=== PATIENT | male | born 1950 | race Caucasian/White ===

== ENCOUNTER 2016-11-19 06:37 | Inpatient (IN) | payer MEDICARE, OTHER ==
[2016-11-19] VITALS (41 sets, daily range): BP systolic 66–162; BP diastolic 26–98
[~2016-11-19] VITALS: Ht 180.3 cm; Wt 105.7 kg
[~2016-11-19 06:37] MED LIST: ACET-2605 GT; ACET160S3 GT; AMLO10TA4 GT; ASCO500S2 GT; BISA10SU8 RC; BLOO-668 IN; CEFT1VIA15 IV; DOCU50LI GT; GLYB5TAB7 GT; INSU100V11 SQ; LEVE100S GT; LISI10TA5 GT; MAGN400O6 GT; METF500T4 GT; MULT1TAB11 GT; NA P133E RC; NUT.237L30 GT; PANT40SU2 GT; SACC250C6 GT
[2016-11-19] MEDS ORDERED: OSELTAMIVIR PHOSPHATE 75 MG CAPSULE ONE (06:48)
[2016-11-19] MEDS ORDERED: ACETAMINOPHEN ES 500 MG TABLET ONE (06:48)
[2016-11-19] MEDS ORDERED: PIPERACILLIN /TAZOBACTAM 3.375 G VIAL IV ONE (06:48)
[2016-11-19] MEDS ORDERED: IV NS 0.9% 2,000 ML ONE (06:49)
[2016-11-19] MEDS ORDERED: IV SET PRIMARY 1 EA INFUS.SET MC ONE (06:49)
[2016-11-19] MEDS ORDERED: IV D5W 50 ML IV ONE (06:49)
[2016-11-19] MEDS ORDERED: OSELTAMIVIR PHOSPHATE 75 MG CAPSULE GT ONE (07:00)
[2016-11-19] MEDS ORDERED: IV SET PRIMARY PUMP SET 1 EA INFUS.SET MC ONE ×4 (07:00→12:40)
[2016-11-19] MEDS ORDERED: IV NS 0.9% 1,000 ML BAG IV ONE ×3 (07:00→13:00)
[2016-11-19] MEDS ORDERED: ACETAMINOPHEN ES 500 MG TABLET GT ONE (07:00)
[2016-11-19] MEDS ORDERED: VANCOMYCIN 1 GM in IV D5W 250 ML IV ONE (07:00)
[2016-11-19] MEDS ORDERED: IV D5W 0 ML IV ONE (07:00)
[2016-11-19] MEDS ORDERED: VANCOMYCIN 1 GM VIAL ONE (07:00)
[2016-11-19] MEDS ORDERED: PIPERACILLIN /TAZOBACTAM 3.375 G in IV D5W 50 ML IV ONE (07:00)
[2016-11-19 07:22] LABS: KETONES,URINE NEGATIVE (NEGATIVE); LEUKOCYTE ESTERASE ,URINE 3+ (NEGATIVE)
[2016-11-19 07:25] LABS: ADD UA MICROSCOPIC YES
[2016-11-19 07:26] LABS: DIFF TOTAL % 100 %; HEMATOCRIT 29 % (39-51); HEMOGLOBIN 9.1 g/dL (13.5-17.5); LYMPHOCYTES # (AUTO) 1.1 /CMM (0.8-4.8); MEAN CORPUSCULAR HEMOGLOBIN 26 PG (26.0-33.0); MEAN CORPUSCULAR HGB CONC 32 g/dl (31.0-36.0); MEAN CORPUSCULAR VOLUME 82 fL (80-96); MONOCYTES # (AUTO) 0.6 /CMM (0.1-1.30); MONOCYTES % (AUTO) 2.8 % (2.0-12.0); NEUTROPHILS # (AUTO) 20.9 /CMM (1.8-8.9); NEUTROPHILS % (AUTO) 92.2 % (43.0-81.0); PLATELET COUNT (AUTO) 243 /CMM (150-450); WHITE BLOOD COUNT (AUTO) 22.7 K/uL (4.3-11.0)
[2016-11-19 07:31] LABS: ADD URINE CULTURE YES; WBC,URINE TOO NUMEROUS TO COUN /HPF (0-3)
[2016-11-19 07:34] LABS: ANION GAP 19 (5-14); CALCIUM, SERUM 8.3 mg/dL (8.5-10.1); CARBON DIOXIDE 18 mmol/L (21-32); CHLORIDE 109 mmol/L (98-107); CREATININE 2.9 mg/dL (0.6-1.3); GFR 22 mL/min (>60); GLUCOSE 305 mg/dL (74-106); POTASSIUM 3.9 mmol/L (3.5-5.1); SODIUM SERUM 142 mmol/L (136-145); UREA NITROGEN, BLOOD 79 mg/dL (7-18)
[2016-11-19 07:35] LABS: INR 1.17 (0.87-1.13); PROTHROMBIN TIME 12.7 SECS (9.5-12.7)
[2016-11-19 07:39] LABS: LACTIC ACID 2.1 mmol/L (0.4-2.0)
[2016-11-19 07:45] LABS: ALANINE AMINOTRANSFERASE 238 U/L (12-78); ALBUMIN 2.2 g/dL (3.4-5.0); ASPARTATE AMINOTRANSFERASE 253 U/L (15-37); BILIRUBIN,DIRECT 0.1 mg/dL (0.0-0.2); BILIRUBIN,TOTAL 0.2 mg/dL (0.2-1.0); INDIRECT BILIRUBIN 0.1 mg/dL (0.0-1.1); TOTAL PROTEIN, SERUM 7.8 g/dL (6.4-8.2)
[2016-11-19] MEDS ORDERED: ALBU1.257 IH (07:48)
[2016-11-19] MEDS ORDERED: ACID1TAB12 GT (07:48)
[2016-11-19] MEDS ORDERED: IPRA0.2S9 IH (07:48)
[2016-11-19] MEDS ORDERED: CEFT1VIA15 IV (07:48)
[2016-11-19] MEDS ORDERED: NORM10004 IV (07:48)
[2016-11-19] MEDS ORDERED: ACET-2605 GT (07:48)
[2016-11-19 07:57] LABS: ABG BASE EXCESS -8.5 mmol/L; ABG HCO3 14.9 mmol/L; ABG PH 7.412 (7.350-7.450); ABG PO2 288.7 mmHg (75.0-100.0); ABG TOTAL HEMOGLOBIN 8.4 G/dL (13.5-18.0); ALLEN TEST Pass; AaDO2 400.3 mmHg; O2Hb 97.9 % (94.0-97.0)
[2016-11-19 08:11] LABS: *LACTIC ACID REFLEX FLAG YES
[2016-11-19] MEDS ORDERED: MISCELLANEOUS MED 1 EA EA GT PRN (10:00)
[2016-11-19] MEDS ORDERED: BISACODYL SUPP (10 MG) 10 MG/SUPP.RECT SUPP.RECT RC PRN (10:00)
[2016-11-19] MEDS ORDERED: MEROPENEM 1 G in IV NS 0.9% 100 ML IV SCH (10:00)
[2016-11-19] MEDS ORDERED: ENOXAPARIN SODIUM 40 MG/0.4 ML DISP.SYRIN SQ SCH (10:00)
[2016-11-19] MEDS ORDERED: DEXTROSE 50%-WATER 50 ML DISP.SYRIN IV PRN (10:00)
[2016-11-19] MEDS ORDERED: IV NS 0.9% 1,000 ML BAG IV SCH (10:00)
[2016-11-19] MEDS ORDERED: MORPHINE SULFATE INJ 2 MG/ML DISP.SYRIN IV PRN (10:00)
[2016-11-19] MEDS ORDERED: ONDANSETRON HCL/PF 4 MG/2 ML VIAL IVP PRN (10:00)
[2016-11-19] MEDS ORDERED: NA PHOS,M-B/NA PHOS,DI-BA 1 EA ENEMA RC PRN (10:00)
[2016-11-19] MEDS ORDERED: MAGNESIUM HYDROXIDE 30 ML UDC GT PRN (10:00)
[2016-11-19] MEDS ORDERED: SECONDARY IV SET 1 EA INFUS.SET MC ONE (10:57)
[2016-11-19] MEDS ORDERED: ENOXAPARIN SODIUM 30 MG/0.3 ML DISP.SYRIN SQ SCH (11:00)
[2016-11-19] MEDS: IV NS 0.9% 1,000 ML IV PRN (11:27)
[2016-11-19] MEDS: ALBUTEROL FS 2.5 MG/0.5 ML VIAL.NEB NEB SCH ×2 (11:30→19:30)
[2016-11-19] MEDS ORDERED: FEE PK DOSING 1 MIN EA MC ONE (11:52)
[2016-11-19] MEDS ORDERED: BLOOD SUGAR DIAGNOSTIC 1 EACH STRIP IN SCH (12:00)
[2016-11-19] MEDS: Z GUARD REMEDY 2 OZ OINT TP PRN (12:02)
[2016-11-19] MEDS: ACETAMINOPHEN 650 MG/20.3 ML UDC GT PRN ×3 (12:02→21:48)
[2016-11-19] MEDS: ENOXAPARIN SODIUM 30 MG/0.3 ML DISP.SYRIN SQ SCH (12:03)
[2016-11-19] MEDS: BLOOD SUGAR DIAGNOSTIC 1 EACH STRIP IN SCH ×3 (12:03→23:51)
[2016-11-19] MEDS ORDERED: NOREPINEPHRINE 8 MG in IV D5W 500 ML IV PRN (12:30)
[2016-11-19] MEDS: INSULIN REGULAR, HUMAN 100 UNIT/ML 3 ML VIAL SQ PRN ×2 (12:51→17:18)
[2016-11-19] MEDS: NOREPINEPHRINE 8 MG in IV D5W 500 ML IV PRN ×2 (13:15→20:38)
[2016-11-19] MEDS ORDERED: ALBUTEROL HALF STRENGTH 1.25 MG/3 ML VIAL.NEB IH SCH (13:30)
[2016-11-19] MEDS: MEROPENEM 1 G in IV NS 0.9% 100 ML IV SCH ×2 (13:31→21:16)
[2016-11-19] MEDS: DOCUSATE SODIUM LIQ 100 MG/10 ML UDC GT SCH (16:29)
[2016-11-19] MEDS: glyBURIDE 5 MG TABLET GT SCH (16:31)
[2016-11-19] MEDS: ACIDOPHILUS/BULGARICUS 1 EACH TAB.CHEW GT SCH (16:31)
[2016-11-19] MEDS: GLYTROL 1,000 ML BAG GT PRN (16:32)
[2016-11-19] MEDS: IPRATROPIUM NEB FS 0.5 MG/2.5 ML AMPUL.NEB IH SCH (19:30)
[2016-11-19] MEDS ORDERED: METRONIDAZOLE 500 MG TABLET PO SCH (21:00)
[2016-11-19] MEDS: LEVETIRACETAM SOL (5 ML) 100 MG/ML UDC GT SCH (21:16)
[2016-11-19] MEDS: METRONIDAZOLE 500 MG TABLET GT SCH (21:48)
[2016-11-20] VITALS (82 sets, daily range): BP systolic 59–139; BP diastolic 37–96
[2016-11-20] MEDS: IV NS 0.9% 1,000 ML IV PRN (00:27)
[2016-11-20] MEDS: NOREPINEPHRINE 16 MG in IV D5W 500 ML IV PRN ×2 (02:51→20:22)
[2016-11-20 04:52] LABS: DIFF TOTAL % 100 %; EOSINOPHILS % (AUTO) 0.1 % (0.0-6.0); HEMATOCRIT 29 % (39-51); LYMPHOCYTES # (AUTO) 0.8 /CMM (0.8-4.8); LYMPHOCYTES % (AUTO) 4.6 % (20.0-44.0); MEAN CORPUSCULAR HEMOGLOBIN 26 PG (26.0-33.0); MEAN CORPUSCULAR HGB CONC 32 g/dl (31.0-36.0); MEAN CORPUSCULAR VOLUME 83 fL (80-96); MONOCYTES # (AUTO) 0.6 /CMM (0.1-1.30); MONOCYTES % (AUTO) 3.6 % (2.0-12.0); NEUTROPHILS # (AUTO) 16.3 /CMM (1.8-8.9); NEUTROPHILS % (AUTO) 91.7 % (43.0-81.0); PLATELET COUNT (AUTO) 186 /CMM (150-450); RED BLOOD CELL COUNT(AUTO) 3.44 MIL/uL (4.5-6.0); WHITE BLOOD COUNT (AUTO) 17.7 K/uL (4.3-11.0)
[2016-11-20 05:15] LABS: ALBUMIN 1.9 g/dL (3.4-5.0); ANION GAP 16 (5-14); ASPARTATE AMINOTRANSFERASE 1057 U/L (15-37); BILIRUBIN,TOTAL 0.2 mg/dL (0.2-1.0); CALCIUM, SERUM 7.5 mg/dL (8.5-10.1); CARBON DIOXIDE 19 mmol/L (21-32); CHLORIDE 113 mmol/L (98-107); CHOLESTEROL 83 mg/dL (<200); CREATININE 2.1 mg/dL (0.6-1.3); GFR 32 mL/min (>60); GLUCOSE 223 mg/dL (74-106); LDL 29 mg/dL (0-99); PHOSPHORUS 2.8 mg/dL (2.5-4.9); POTASSIUM 3.4 mmol/L (3.5-5.1); SODIUM SERUM 145 mmol/L (136-145); TRIGLYCERIDES 166 mg/dL (30-150); UREA NITROGEN, BLOOD 55 mg/dL (7-18)
[2016-11-20 05:16] LABS: HDL CHOLESTEROL < 10 mg/dL (40-60)
[2016-11-20] MEDS: ACETAMINOPHEN 650 MG/20.3 ML UDC GT PRN (05:24)
[2016-11-20] MEDS: PANTOPRAZOLE 40 MG/PACK PACK GT SCH (05:24)
[2016-11-20] MEDS: METRONIDAZOLE 500 MG TABLET GT SCH ×3 (05:24→20:54)
[2016-11-20 05:29] LABS: ALANINE AMINOTRANSFERASE 1266 U/L (12-78)
[2016-11-20 05:46] LABS: LYMPHOCYTES % (MANUAL) 5 % (16-48); PLATELET ESTIMATE ADEQUATE
[2016-11-20 05:48] LABS: HYPOCHROMASIA SLT
[2016-11-20] MEDS: BLOOD SUGAR DIAGNOSTIC 1 EACH STRIP IN SCH ×3 (06:34→17:26)
[2016-11-20] MEDS: INSULIN REGULAR, HUMAN 100 UNIT/ML 3 ML VIAL SQ PRN ×3 (06:43→17:30)
[2016-11-20] MEDS: ALBUTEROL FS 2.5 MG/0.5 ML VIAL.NEB NEB SCH ×4 (08:17→19:26)
[2016-11-20] MEDS: IPRATROPIUM NEB FS 0.5 MG/2.5 ML AMPUL.NEB IH SCH ×4 (08:17→19:26)
[2016-11-20] MEDS: ACIDOPHILUS/BULGARICUS 1 EACH TAB.CHEW GT SCH ×2 (08:21→16:46)
[2016-11-20] MEDS: glyBURIDE 5 MG TABLET GT SCH ×2 (08:21→16:46)
[2016-11-20] MEDS: DOCUSATE SODIUM LIQ 100 MG/10 ML UDC GT SCH ×2 (08:22→16:46)
[2016-11-20] MEDS: LEVETIRACETAM SOL (5 ML) 100 MG/ML UDC GT SCH ×2 (08:22→20:55)
[2016-11-20] MEDS: MEROPENEM 1 G in IV NS 0.9% 100 ML IV SCH ×2 (08:22→20:55)
[2016-11-20] MEDS: ENOXAPARIN SODIUM 30 MG/0.3 ML DISP.SYRIN SQ SCH (08:23)
[2016-11-20] MEDS ORDERED: AMLODIPINE BESYLATE 10 MG TABLET GT SCH (09:00)
[2016-11-20] MEDS ORDERED: LISINOPRIL (10MG) 10 MG TABLET GT SCH (09:00)
[2016-11-20] MEDS ORDERED: ASCORBIC ACID SYRUP 500 MG/5 ML UDC GT SCH (09:00)
[2016-11-20] MEDS: ASCORBIC ACID 500 MG TABLET GT SCH (09:39)
[2016-11-20 09:44] LABS: TROPONIN I 0.115 ng/mL (0.00-0.056)
[2016-11-20] MEDS: Potassium Chloride 20 MEQ in IV NS 0.9% 1,000 ML IV PRN (10:07)
[2016-11-20] MEDS ORDERED: IV SET PRIMARY PUMP SET 1 EA INFUS.SET MC ONE (15:59)
[2016-11-20] MEDS ORDERED: SECONDARY IV SET 1 EA INFUS.SET MC ONE (16:00)
[2016-11-20] MEDS ORDERED: VANCOMYCIN 1.25 GM in IV D5W 500 ML IV SCH (16:00)
[2016-11-20] MEDS ORDERED: IV NS 0.9% 250 ML IV ONE (16:00)
[2016-11-21] VITALS (72 sets, daily range): BP systolic 84–138; BP diastolic 42–105
[2016-11-21] MEDS: BLOOD SUGAR DIAGNOSTIC 1 EACH STRIP IN SCH ×4 (00:08→17:40)
[2016-11-21] MEDS: INSULIN REGULAR, HUMAN 100 UNIT/ML 3 ML VIAL SQ PRN ×5 (00:29→23:33)
[2016-11-21] MEDS: Potassium Chloride 20 MEQ in IV NS 0.9% 1,000 ML IV PRN ×3 (01:06→19:40)
[2016-11-21 05:04] LABS: TROPONIN I 0.033 ng/mL (0.00-0.056)
[2016-11-21 05:10] LABS: ALBUMIN 1.8 g/dL (3.4-5.0); BILIRUBIN,TOTAL 0.2 mg/dL (0.2-1.0); CALCIUM, SERUM 7.6 mg/dL (8.5-10.1); CREATININE 1.7 mg/dL (0.6-1.3); PHOSPHORUS 1.8 mg/dL (2.5-4.9); POTASSIUM 3.6 mmol/L (3.5-5.1); TOTAL PROTEIN, SERUM 6.6 g/dL (6.4-8.2)
[2016-11-21] MEDS: METRONIDAZOLE 500 MG TABLET GT SCH ×3 (05:26→20:07)
[2016-11-21] MEDS: PANTOPRAZOLE 40 MG/PACK PACK GT SCH (05:27)
[2016-11-21 05:31] LABS: BASOPHILS % (AUTO) 0.1 % (0.0-2.0); DIFF TOTAL % 100 %; EOSINOPHILS # (AUTO) 0.1 /CMM (0.0-0.7); EOSINOPHILS % (AUTO) 0.3 % (0.0-6.0); HEMATOCRIT 27 % (39-51); HEMOGLOBIN 8.2 g/dL (13.5-17.5); LYMPHOCYTES % (AUTO) 6.2 % (20.0-44.0); MEAN CORPUSCULAR HEMOGLOBIN 26 PG (26.0-33.0); MEAN CORPUSCULAR HGB CONC 31 g/dl (31.0-36.0); MEAN CORPUSCULAR VOLUME 82 fL (80-96); MONOCYTES # (AUTO) 0.8 /CMM (0.1-1.30); MONOCYTES % (AUTO) 4.5 % (2.0-12.0); NEUTROPHILS % (AUTO) 88.9 % (43.0-81.0); PLATELET COUNT (AUTO) 189 /CMM (150-450); RED BLOOD CELL COUNT(AUTO) 3.23 MIL/uL (4.5-6.0); WHITE BLOOD COUNT (AUTO) 16.9 K/uL (4.3-11.0)
[2016-11-21 05:40] LABS: ANISOCYTOSIS 1+; HYPOCHROMASIA SLT; LYMPHOCYTES % (MANUAL) 2 % (16-48); PLATELET ESTIMATE ADEQUATE
[2016-11-21] MEDS ORDERED: ALBUTEROL FS 2.5 MG/0.5 ML VIAL.NEB ONE ×4 (07:55→20:18)
[2016-11-21] MEDS: IPRATROPIUM NEB FS 0.5 MG/2.5 ML AMPUL.NEB IH SCH ×4 (07:58→20:18)
[2016-11-21] MEDS: ALBUTEROL FS 2.5 MG/0.5 ML VIAL.NEB NEB SCH ×4 (07:58→20:21)
[2016-11-21] MEDS: DOCUSATE SODIUM LIQ 100 MG/10 ML UDC GT SCH ×2 (09:00→16:37)
[2016-11-21] MEDS: GLYTROL 1,000 ML BAG GT PRN (09:30)
[2016-11-21] MEDS: LEVETIRACETAM SOL (5 ML) 100 MG/ML UDC GT SCH ×2 (09:34→20:07)
[2016-11-21] MEDS: glyBURIDE 5 MG TABLET GT SCH ×2 (09:34→16:37)
[2016-11-21] MEDS: ASCORBIC ACID 500 MG TABLET GT SCH (09:35)
[2016-11-21] MEDS: ACIDOPHILUS/BULGARICUS 1 EACH TAB.CHEW GT SCH ×2 (09:35→16:38)
[2016-11-21] MEDS: MEROPENEM 1 G in IV NS 0.9% 100 ML IV SCH ×2 (09:36→20:07)
[2016-11-21] MEDS: ENOXAPARIN SODIUM 30 MG/0.3 ML DISP.SYRIN SQ SCH (09:51)
[2016-11-21] MEDS: ACETAMINOPHEN 650 MG/20.3 ML UDC GT PRN (13:19)
[2016-11-21] MEDS ORDERED: NEUTRA PHOS 1 POWD.PACKET NG ONE (16:30)
[2016-11-21] MEDS: VANCOMYCIN 1.25 GM in IV D5W 500 ML IV SCH (16:37)
[2016-11-21] MEDS: NOREPINEPHRINE 16 MG in IV D5W 500 ML IV PRN (19:39)
[2016-11-22] VITALS (72 sets, daily range): BP systolic 81–149; BP diastolic 49–98
[2016-11-22] MEDS: BLOOD SUGAR DIAGNOSTIC 1 EACH STRIP IN SCH ×5 (00:38→23:34)
[2016-11-22] MEDS: Potassium Chloride 20 MEQ in IV NS 0.9% 1,000 ML IV PRN (03:52)
[2016-11-22 05:10] LABS: BASOPHILS % (AUTO) 0.3 % (0.0-2.0); CALCIUM, SERUM 7.8 mg/dL (8.5-10.1); CREATININE 1.4 mg/dL (0.6-1.3); DIFF TOTAL % 100 %; EOSINOPHILS # (AUTO) 0.3 /CMM (0.0-0.7); EOSINOPHILS % (AUTO) 2.1 % (0.0-6.0); HEMATOCRIT 24 % (39-51); HEMOGLOBIN 7.5 g/dL (13.5-17.5); LYMPHOCYTES # (AUTO) 0.8 /CMM (0.8-4.8); LYMPHOCYTES % (AUTO) 6.8 % (20.0-44.0); MEAN CORPUSCULAR HEMOGLOBIN 26 PG (26.0-33.0); MEAN CORPUSCULAR HGB CONC 31 g/dl (31.0-36.0); MEAN CORPUSCULAR VOLUME 82 fL (80-96); MONOCYTES # (AUTO) 0.6 /CMM (0.1-1.30); MONOCYTES % (AUTO) 5.4 % (2.0-12.0); NEUTROPHILS # (AUTO) 10.1 /CMM (1.8-8.9); NEUTROPHILS % (AUTO) 85.4 % (43.0-81.0); PHOSPHORUS 2.1 mg/dL (2.5-4.9); PLATELET COUNT (AUTO) 166 /CMM (150-450); POTASSIUM 4.2 mmol/L (3.5-5.1); RED BLOOD CELL COUNT(AUTO) 2.96 MIL/uL (4.5-6.0); WHITE BLOOD COUNT (AUTO) 11.8 K/uL (4.3-11.0)
[2016-11-22] MEDS: PANTOPRAZOLE 40 MG/PACK PACK GT SCH (05:43)
[2016-11-22] MEDS: METRONIDAZOLE 500 MG TABLET GT SCH ×3 (05:45→21:14)
[2016-11-22] MEDS: ALBUTEROL FS 2.5 MG/0.5 ML VIAL.NEB NEB SCH ×5 (07:35→20:45)
[2016-11-22] MEDS: IPRATROPIUM NEB FS 0.5 MG/2.5 ML AMPUL.NEB IH SCH ×5 (07:52→20:45)
[2016-11-22] MEDS: DOCUSATE SODIUM LIQ 100 MG/10 ML UDC GT SCH ×2 (07:57→16:16)
[2016-11-22] MEDS: GLYTROL 1,000 ML BAG GT PRN (07:58)
[2016-11-22] MEDS: MEROPENEM 1 G in IV NS 0.9% 100 ML IV SCH (08:00)
[2016-11-22] MEDS: LEVETIRACETAM SOL (5 ML) 100 MG/ML UDC GT SCH ×2 (08:00→21:13)
[2016-11-22] MEDS: ACIDOPHILUS/BULGARICUS 1 EACH TAB.CHEW GT SCH ×2 (08:00→16:16)
[2016-11-22] MEDS: glyBURIDE 5 MG TABLET GT SCH ×2 (08:00→16:16)
[2016-11-22] MEDS: ASCORBIC ACID 500 MG TABLET GT SCH (08:00)
[2016-11-22] MEDS: ENOXAPARIN SODIUM 30 MG/0.3 ML DISP.SYRIN SQ SCH (08:01)
[2016-11-22] MEDS ORDERED: IV NS 0.9% 500 ML IV ONE (11:00)
[2016-11-22] MEDS ORDERED: IV SET PRIMARY PUMP SET 1 EA INFUS.SET MC ONE (11:29)
[2016-11-22] MEDS ORDERED: SECONDARY IV SET 1 EA INFUS.SET MC ONE (11:30)
[2016-11-22] MEDS: VANCOMYCIN 1.25 GM in IV D5W 500 ML IV SCH (11:33)
[2016-11-22] MEDS ORDERED: NEUTRA PHOS 1 POWD.PACKET NG ONE (16:00)
[2016-11-22] MEDS: RIFAMPIN 300 MG CAPSULE PO SCH (20:01)
[2016-11-22] MEDS: INSULIN REGULAR, HUMAN 100 UNIT/ML 3 ML VIAL SQ PRN (23:33)
[2016-11-23] VITALS (35 sets, daily range): BP systolic 101–138; BP diastolic 61–79
[2016-11-23] MEDS: VANCOMYCIN 1.25 GM in IV D5W 500 ML IV SCH ×2 (03:59→22:18)
[2016-11-23 04:56] LABS: DIFF TOTAL % 100 %; EOSINOPHILS # (AUTO) 0.4 /CMM (0.0-0.7); EOSINOPHILS % (AUTO) 2.8 % (0.0-6.0); HEMATOCRIT 22 % (39-51); LYMPHOCYTES # (AUTO) 1.2 /CMM (0.8-4.8); MEAN CORPUSCULAR HEMOGLOBIN 26 PG (26.0-33.0); MEAN CORPUSCULAR HGB CONC 32 g/dl (31.0-36.0); MEAN CORPUSCULAR VOLUME 82 fL (80-96); MONOCYTES # (AUTO) 0.7 /CMM (0.1-1.30); MONOCYTES % (AUTO) 5.1 % (2.0-12.0); NEUTROPHILS # (AUTO) 12.2 /CMM (1.8-8.9); NEUTROPHILS % (AUTO) 84.1 % (43.0-81.0); PLATELET COUNT (AUTO) 180 /CMM (150-450); RED BLOOD CELL COUNT(AUTO) 2.65 MIL/uL (4.5-6.0); WHITE BLOOD COUNT (AUTO) 14.5 K/uL (4.3-11.0)
[2016-11-23 05:10] LABS: CALCIUM, SERUM 7.9 mg/dL (8.5-10.1); CREATININE 1.2 mg/dL (0.6-1.3); PHOSPHORUS 2.3 mg/dL (2.5-4.9); POTASSIUM 3.8 mmol/L (3.5-5.1)
[2016-11-23] MEDS: BLOOD SUGAR DIAGNOSTIC 1 EACH STRIP IN SCH ×4 (05:59→23:52)
[2016-11-23] MEDS: INSULIN REGULAR, HUMAN 100 UNIT/ML 3 ML VIAL SQ PRN ×4 (06:01→23:52)
[2016-11-23] MEDS: PANTOPRAZOLE 40 MG/PACK PACK GT SCH (06:05)
[2016-11-23] MEDS: METRONIDAZOLE 500 MG TABLET GT SCH ×3 (06:05→20:33)
[2016-11-23] MEDS: ALBUTEROL FS 2.5 MG/0.5 ML VIAL.NEB NEB SCH ×4 (07:50→19:12)
[2016-11-23] MEDS: IPRATROPIUM NEB FS 0.5 MG/2.5 ML AMPUL.NEB IH SCH ×4 (07:50→19:11)
[2016-11-23] MEDS ORDERED: IV NS 0.9% 250 ML IV ONE ×2 (08:02→16:58)
[2016-11-23] MEDS: glyBURIDE 5 MG TABLET GT SCH ×2 (08:23→16:19)
[2016-11-23] MEDS: DOCUSATE SODIUM LIQ 100 MG/10 ML UDC GT SCH ×4 (08:23→16:28)
[2016-11-23] MEDS: LEVETIRACETAM SOL (5 ML) 100 MG/ML UDC GT SCH ×2 (08:23→20:33)
[2016-11-23] MEDS: GLYTROL 1,000 ML BAG GT PRN ×2 (08:23→16:28)
[2016-11-23] MEDS: ACIDOPHILUS/BULGARICUS 1 EACH TAB.CHEW GT SCH ×2 (08:23→16:18)
[2016-11-23] MEDS: ASCORBIC ACID 500 MG TABLET GT SCH (08:23)
[2016-11-23] MEDS: RIFAMPIN 300 MG CAPSULE PO SCH (08:23)
[2016-11-23] MEDS: ENOXAPARIN SODIUM 30 MG/0.3 ML DISP.SYRIN SQ SCH (08:36)
[2016-11-23] MEDS ORDERED: FUROSEMIDE 40 MG/4 ML VIAL IV PRN (14:00)
[2016-11-23] MEDS ORDERED: BLOOD IV SET 1 EA INFUS.SET MC ONE (16:58)
[2016-11-23] MEDS ORDERED: NEUTRA PHOS 1 POWD.PACKET GT ONE (17:00)
[2016-11-23 17:09] LABS: ALBUMIN 1.5 g/dL (3.4-5.0); BILIRUBIN,TOTAL 0.3 mg/dL (0.2-1.0); CALCIUM, SERUM 7.8 mg/dL (8.5-10.1); CREATININE 1.2 mg/dL (0.6-1.3); POTASSIUM 3.8 mmol/L (3.5-5.1); TOTAL PROTEIN, SERUM 6.1 g/dL (6.4-8.2)
[2016-11-23] MEDS: COLISTIMETHATE SODIUM 150 MG VIAL NEB SCH (23:07)
[2016-11-24] VITALS (18 sets, daily range): BP systolic 104–154; BP diastolic 57–98
[2016-11-24 04:17] LABS: DIFF TOTAL % 100 %; EOSINOPHILS # (AUTO) 0.7 /CMM (0.0-0.7); EOSINOPHILS % (AUTO) 5.3 % (0.0-6.0); HEMATOCRIT 29 % (39-51); HEMOGLOBIN 9.4 g/dL (13.5-17.5); LYMPHOCYTES # (AUTO) 1.2 /CMM (0.8-4.8); LYMPHOCYTES % (AUTO) 8.3 % (20.0-44.0); MEAN CORPUSCULAR HEMOGLOBIN 27 PG (26.0-33.0); MEAN CORPUSCULAR HGB CONC 33 g/dl (31.0-36.0); MEAN CORPUSCULAR VOLUME 83 fL (80-96); MONOCYTES # (AUTO) 0.9 /CMM (0.1-1.30); MONOCYTES % (AUTO) 6.7 % (2.0-12.0); NEUTROPHILS # (AUTO) 11.3 /CMM (1.8-8.9); NEUTROPHILS % (AUTO) 79.7 % (43.0-81.0); PLATELET COUNT (AUTO) 232 /CMM (150-450); RED BLOOD CELL COUNT(AUTO) 3.48 MIL/uL (4.5-6.0); WHITE BLOOD COUNT (AUTO) 14.2 K/uL (4.3-11.0)
[2016-11-24 04:25] LABS: CALCIUM, SERUM 8.1 mg/dL (8.5-10.1); CREATININE 1.2 mg/dL (0.6-1.3); PHOSPHORUS 3.6 mg/dL (2.5-4.9); POTASSIUM 3.7 mmol/L (3.5-5.1)
[2016-11-24] MEDS: ACETAMINOPHEN 650 MG/20.3 ML UDC GT PRN ×2 (04:30→20:34)
[2016-11-24] MEDS: METRONIDAZOLE 500 MG TABLET GT SCH ×3 (04:33→20:35)
[2016-11-24] MEDS: GLYTROL 1,000 ML BAG GT PRN (05:37)
[2016-11-24] MEDS: INSULIN REGULAR, HUMAN 100 UNIT/ML 3 ML VIAL SQ PRN ×4 (05:42→23:27)
[2016-11-24] MEDS: BLOOD SUGAR DIAGNOSTIC 1 EACH STRIP IN SCH ×4 (05:43→23:23)
[2016-11-24] MEDS: PANTOPRAZOLE 40 MG/PACK PACK GT SCH (05:43)
[2016-11-24] MEDS: ALBUTEROL FS 2.5 MG/0.5 ML VIAL.NEB NEB SCH ×4 (07:33→18:59)
[2016-11-24] MEDS: IPRATROPIUM NEB FS 0.5 MG/2.5 ML AMPUL.NEB IH SCH ×4 (07:33→18:59)
[2016-11-24] MEDS: ASCORBIC ACID 500 MG TABLET GT SCH (08:12)
[2016-11-24] MEDS: glyBURIDE 5 MG TABLET GT SCH ×2 (08:12→18:05)
[2016-11-24] MEDS: DOCUSATE SODIUM LIQ 100 MG/10 ML UDC GT SCH ×2 (08:12→17:25)
[2016-11-24] MEDS: LEVETIRACETAM SOL (5 ML) 100 MG/ML UDC GT SCH ×2 (08:12→20:35)
[2016-11-24] MEDS: ACIDOPHILUS/BULGARICUS 1 EACH TAB.CHEW GT SCH ×2 (08:12→17:25)
[2016-11-24] MEDS: RIFAMPIN 300 MG CAPSULE PO SCH (08:12)
[2016-11-24] MEDS: ENOXAPARIN SODIUM 30 MG/0.3 ML DISP.SYRIN SQ SCH (08:13)
[2016-11-24] MEDS: COLISTIMETHATE SODIUM 150 MG VIAL NEB SCH ×2 (09:59→20:48)
[2016-11-24] MEDS ORDERED: SECONDARY IV SET 1 EA INFUS.SET MC ONE ×2 (10:34→18:00)
[2016-11-24] MEDS: Magnesium 1GM/D5W 100ML PREMIX 100 ML IV SCH ×2 (10:39→11:39)
[2016-11-24] MEDS ORDERED: MEROPENEM 500 MG in IV NS 0.9% 50 ML IV SCH (16:00)
[2016-11-24] MEDS: MEROPENEM 500 MG in IV NS 0.9% 50 ML IV SCH (17:25)
[2016-11-24] MEDS ORDERED: IV SET PRIMARY PUMP SET 1 EA INFUS.SET MC ONE (18:00)
[2016-11-24] MEDS ORDERED: IV NS 0.9% 250 ML IV ONE (21:07)
[2016-11-24] MEDS: VANCOMYCIN 1.25 GM in IV D5W 500 ML IV SCH (21:08)
[2016-11-25] VITALS (7 sets, daily range): BP systolic 104–120; BP diastolic 66–69
[2016-11-25] MEDS: MEROPENEM 500 MG in IV NS 0.9% 50 ML IV SCH ×3 (00:15→16:46)
[2016-11-25] MEDS: INSULIN REGULAR, HUMAN 100 UNIT/ML 3 ML VIAL SQ PRN ×3 (05:46→17:22)
[2016-11-25] MEDS: Z GUARD REMEDY 2 OZ OINT TP PRN (05:50)
[2016-11-25] MEDS: BLOOD SUGAR DIAGNOSTIC 1 EACH STRIP IN SCH ×3 (06:00→17:02)
[2016-11-25] MEDS: PANTOPRAZOLE 40 MG/PACK PACK GT SCH (06:00)
[2016-11-25] MEDS: METRONIDAZOLE 500 MG TABLET GT SCH ×3 (06:00→21:49)
[2016-11-25] MEDS: ALBUTEROL FS 2.5 MG/0.5 ML VIAL.NEB NEB SCH ×4 (07:14→21:32)
[2016-11-25] MEDS: IPRATROPIUM NEB FS 0.5 MG/2.5 ML AMPUL.NEB IH SCH ×4 (07:14→21:32)
[2016-11-25 07:37] LABS: BASOPHILS # (AUTO) 0.1 /CMM (0.0-0.2); BASOPHILS % (AUTO) 0.5 % (0.0-2.0); DIFF TOTAL % 100 %; EOSINOPHILS # (AUTO) 0.6 /CMM (0.0-0.7); EOSINOPHILS % (AUTO) 4.8 % (0.0-6.0); HEMATOCRIT 31 % (39-51); HEMOGLOBIN 9.9 g/dL (13.5-17.5); LYMPHOCYTES # (AUTO) 1.1 /CMM (0.8-4.8); LYMPHOCYTES % (AUTO) 8.9 % (20.0-44.0); MEAN CORPUSCULAR HEMOGLOBIN 27 PG (26.0-33.0); MEAN CORPUSCULAR HGB CONC 32 g/dl (31.0-36.0); MEAN CORPUSCULAR VOLUME 83 fL (80-96); MONOCYTES # (AUTO) 0.6 /CMM (0.1-1.30); MONOCYTES % (AUTO) 5.1 % (2.0-12.0); NEUTROPHILS # (AUTO) 10.1 /CMM (1.8-8.9); NEUTROPHILS % (AUTO) 80.7 % (43.0-81.0); PLATELET COUNT (AUTO) 279 /CMM (150-450); RED BLOOD CELL COUNT(AUTO) 3.72 MIL/uL (4.5-6.0); WHITE BLOOD COUNT (AUTO) 12.6 K/uL (4.3-11.0)
[2016-11-25] MEDS: ASCORBIC ACID 500 MG TABLET GT SCH (08:44)
[2016-11-25] MEDS: LEVETIRACETAM SOL (5 ML) 100 MG/ML UDC GT SCH ×2 (08:44→21:49)
[2016-11-25] MEDS: ENOXAPARIN SODIUM 40 MG/0.4 ML DISP.SYRIN SQ SCH (08:44)
[2016-11-25] MEDS: DOCUSATE SODIUM LIQ 100 MG/10 ML UDC GT SCH ×2 (08:44→16:46)
[2016-11-25] MEDS: ACIDOPHILUS/BULGARICUS 1 EACH TAB.CHEW GT SCH ×2 (08:44→16:46)
[2016-11-25] MEDS: RIFAMPIN 300 MG CAPSULE PO SCH (08:44)
[2016-11-25] MEDS: glyBURIDE 5 MG TABLET GT SCH ×2 (08:44→17:02)
[2016-11-25 08:45] LABS: ALBUMIN 1.6 g/dL (3.4-5.0); BILIRUBIN,TOTAL 0.2 mg/dL (0.2-1.0); CALCIUM, SERUM 8.4 mg/dL (8.5-10.1); CREATININE 1.2 mg/dL (0.6-1.3); POTASSIUM 3.8 mmol/L (3.5-5.1); TOTAL PROTEIN, SERUM 6.7 g/dL (6.4-8.2)
[2016-11-25] MEDS: COLISTIMETHATE SODIUM 150 MG VIAL NEB SCH ×2 (12:02→21:32)
[2016-11-25] MEDS: GLYTROL 1,000 ML BAG GT PRN (16:46)
[2016-11-25] MEDS: METOCLOPRAMIDE HCL 10 MG/2 ML VIAL IV SCH (17:02)
[2016-11-25] MEDS: VANCOMYCIN 1.25 GM in IV D5W 500 ML IV SCH (21:50)
[2016-11-25] MEDS ORDERED: IV SET PRIMARY PUMP SET 1 EA INFUS.SET MC ONE (22:29)
[2016-11-26] VITALS: BP 123/70
[2016-11-26] MEDS: MEROPENEM 500 MG in IV NS 0.9% 50 ML IV SCH ×3 (00:56→18:03)
[2016-11-26] MEDS: METOCLOPRAMIDE HCL 10 MG/2 ML VIAL IV SCH ×4 (00:57→18:03)
[2016-11-26] MEDS: BLOOD SUGAR DIAGNOSTIC 1 EACH STRIP IN SCH ×5 (00:57→23:46)
[2016-11-26] MEDS: INSULIN REGULAR, HUMAN 100 UNIT/ML 3 ML VIAL SQ PRN ×5 (01:04→23:56)
[2016-11-26 04:00] VITALS: BP 124/73
[2016-11-26] MEDS: GLYTROL 1,000 ML BAG GT PRN ×3 (05:48→12:12)
[2016-11-26] MEDS: PANTOPRAZOLE 40 MG/PACK PACK GT SCH (05:49)
[2016-11-26] MEDS: METRONIDAZOLE 500 MG TABLET GT SCH ×3 (05:49→21:13)
[2016-11-26] MEDS: IPRATROPIUM NEB FS 0.5 MG/2.5 ML AMPUL.NEB IH SCH ×4 (07:18→20:21)
[2016-11-26] MEDS: ALBUTEROL FS 2.5 MG/0.5 ML VIAL.NEB NEB SCH ×4 (07:18→20:21)
[2016-11-26 07:39] LABS: CALCIUM, SERUM 8.9 mg/dL (8.5-10.1); CREATININE 1.2 mg/dL (0.6-1.3); POTASSIUM 4.1 mmol/L (3.5-5.1)
[2016-11-26 08:00] VITALS: BP 110/67
[2016-11-26] MEDS: COLISTIMETHATE SODIUM 150 MG VIAL NEB SCH ×2 (08:53→21:00)
[2016-11-26] MEDS: glyBURIDE 5 MG TABLET GT SCH ×2 (08:55→18:03)
[2016-11-26] MEDS: RIFAMPIN 300 MG CAPSULE PO SCH (08:55)
[2016-11-26] MEDS: DOCUSATE SODIUM LIQ 100 MG/10 ML UDC GT SCH ×2 (08:55→17:00)
[2016-11-26] MEDS: LEVETIRACETAM SOL (5 ML) 100 MG/ML UDC GT SCH ×2 (08:55→21:13)
[2016-11-26] MEDS: ASCORBIC ACID 500 MG TABLET GT SCH (08:55)
[2016-11-26] MEDS: ACIDOPHILUS/BULGARICUS 1 EACH TAB.CHEW GT SCH ×2 (08:55→18:03)
[2016-11-26] MEDS: ENOXAPARIN SODIUM 40 MG/0.4 ML DISP.SYRIN SQ SCH (08:56)
[2016-11-26 09:28] LABS: BASOPHILS % (AUTO) 0.3 % (0.0-2.0); DIFF TOTAL % 100 %; EOSINOPHILS # (AUTO) 0.6 /CMM (0.0-0.7); EOSINOPHILS % (AUTO) 4.4 % (0.0-6.0); HEMATOCRIT 32 % (39-51); HEMOGLOBIN 10.1 g/dL (13.5-17.5); LYMPHOCYTES # (AUTO) 1.3 /CMM (0.8-4.8); LYMPHOCYTES % (AUTO) 10.3 % (20.0-44.0); MEAN CORPUSCULAR HEMOGLOBIN 27 PG (26.0-33.0); MEAN CORPUSCULAR HGB CONC 32 g/dl (31.0-36.0); MEAN CORPUSCULAR VOLUME 84 fL (80-96); MONOCYTES # (AUTO) 0.8 /CMM (0.1-1.30); MONOCYTES % (AUTO) 6.2 % (2.0-12.0); NEUTROPHILS # (AUTO) 10.3 /CMM (1.8-8.9); NEUTROPHILS % (AUTO) 78.8 % (43.0-81.0); PLATELET COUNT (AUTO) 345 /CMM (150-450); RED BLOOD CELL COUNT(AUTO) 3.82 MIL/uL (4.5-6.0)
[2016-11-26] MEDS ORDERED: IV NS 0.9% 250 ML IV ONE ×2 (11:57→21:17)
[2016-11-26 12:00] VITALS: BP 117/65
[2016-11-26 16:00] VITALS: BP 121/71
[2016-11-26] MEDS ORDERED: SECONDARY IV SET 1 EA INFUS.SET MC ONE ×2 (17:50→21:17)
[2016-11-26] MEDS: FLUCONAZOLE IN NS 100 MG in PREMIX 1 EA IV SCH ×2 (18:04)
[2016-11-26 20:00] VITALS: BP 112/77
[2016-11-26] MEDS: VANCOMYCIN 1.25 GM in IV D5W 500 ML IV SCH (21:13)
[2016-11-26] MEDS ORDERED: IV SET PRIMARY PUMP SET 1 EA INFUS.SET MC ONE (21:17)
[2016-11-27] VITALS: BP 129/77
[2016-11-27] MEDS: GLYTROL 1,000 ML BAG GT PRN ×2 (00:59→12:22)
[2016-11-27 04:00] VITALS: BP 154/87
[2016-11-27] MEDS: METRONIDAZOLE 500 MG TABLET GT SCH ×3 (04:19→21:50)
[2016-11-27] MEDS: INSULIN REGULAR, HUMAN 100 UNIT/ML 3 ML VIAL SQ PRN ×4 (05:08→23:26)
[2016-11-27] MEDS: METOCLOPRAMIDE HCL 10 MG/2 ML VIAL IV SCH ×3 (05:10→10:58)
[2016-11-27] MEDS: PANTOPRAZOLE 40 MG/PACK PACK GT SCH (05:10)
[2016-11-27] MEDS: BLOOD SUGAR DIAGNOSTIC 1 EACH STRIP IN SCH ×4 (05:11→23:20)
[2016-11-27 06:08] LABS: BASOPHILS % (AUTO) 0.3 % (0.0-2.0); DIFF TOTAL % 100 %; EOSINOPHILS # (AUTO) 0.5 /CMM (0.0-0.7); EOSINOPHILS % (AUTO) 3.6 % (0.0-6.0); HEMATOCRIT 30 % (39-51); HEMOGLOBIN 9.5 g/dL (13.5-17.5); LYMPHOCYTES # (AUTO) 1.2 /CMM (0.8-4.8); LYMPHOCYTES % (AUTO) 9.3 % (20.0-44.0); MEAN CORPUSCULAR HEMOGLOBIN 27 PG (26.0-33.0); MEAN CORPUSCULAR HGB CONC 32 g/dl (31.0-36.0); MEAN CORPUSCULAR VOLUME 84 fL (80-96); MONOCYTES # (AUTO) 0.7 /CMM (0.1-1.30); NEUTROPHILS % (AUTO) 81.8 % (43.0-81.0); PLATELET COUNT (AUTO) 331 /CMM (150-450); RED BLOOD CELL COUNT(AUTO) 3.55 MIL/uL (4.5-6.0); WHITE BLOOD COUNT (AUTO) 13.4 K/uL (4.3-11.0)
[2016-11-27 06:53] LABS: CALCIUM, SERUM 9.3 mg/dL (8.5-10.1); CREATININE 1.3 mg/dL (0.6-1.3)
[2016-11-27] MEDS: ALBUTEROL FS 2.5 MG/0.5 ML VIAL.NEB NEB SCH ×4 (07:44→19:37)
[2016-11-27] MEDS: IPRATROPIUM NEB FS 0.5 MG/2.5 ML AMPUL.NEB IH SCH ×4 (07:44→19:36)
[2016-11-27 08:00] VITALS: BP 125/73
[2016-11-27] MEDS: LEVETIRACETAM SOL (5 ML) 100 MG/ML UDC GT SCH ×2 (08:41→21:50)
[2016-11-27] MEDS: ENOXAPARIN SODIUM 40 MG/0.4 ML DISP.SYRIN SQ SCH (08:42)
[2016-11-27] MEDS: ASCORBIC ACID 500 MG TABLET GT SCH (08:43)
[2016-11-27] MEDS: glyBURIDE 5 MG TABLET GT SCH ×2 (08:43→16:55)
[2016-11-27] MEDS: RIFAMPIN 300 MG CAPSULE PO SCH (08:43)
[2016-11-27] MEDS: ACIDOPHILUS/BULGARICUS 1 EACH TAB.CHEW GT SCH ×2 (08:43→16:54)
[2016-11-27] MEDS: DOCUSATE SODIUM LIQ 100 MG/10 ML UDC GT SCH ×2 (08:43→16:55)
[2016-11-27] MEDS: COLISTIMETHATE SODIUM 150 MG VIAL NEB SCH ×2 (10:42→21:15)
[2016-11-27 12:00] VITALS: BP_SYST 148; BP_DIAS 76; BP_DIAS 79
[2016-11-27] MEDS: FLUCONAZOLE IN NS 100 MG in PREMIX 1 EA IV SCH ×2 (15:31)
[2016-11-27 16:00] VITALS: BP 122/73
[2016-11-27 20:00] VITALS: BP_SYST 133; BP_DIAS 58; BP_DIAS 73
[2016-11-27] MEDS: VORICONAZOLE 200 MG TABLET GT SCH (21:51)
[2016-11-27] MEDS: VANCOMYCIN 1.25 GM in IV D5W 500 ML IV SCH (22:43)
[2016-11-28] VITALS: BP 135/72
[2016-11-28 04:00] VITALS: BP 128/77
[2016-11-28] MEDS ORDERED: IV NS 0.9% 250 ML IV ONE (04:38)
[2016-11-28] MEDS ORDERED: IV NS 0.9% 250 ML IV PRN (05:00)
[2016-11-28] MEDS: GLYTROL 1,000 ML BAG GT PRN (05:58)
[2016-11-28] MEDS: PANTOPRAZOLE 40 MG/PACK PACK GT SCH (06:02)
[2016-11-28] MEDS: METRONIDAZOLE 500 MG TABLET GT SCH ×2 (06:02→13:05)
[2016-11-28] MEDS: BLOOD SUGAR DIAGNOSTIC 1 EACH STRIP IN SCH ×2 (06:02→11:45)
[2016-11-28] MEDS: INSULIN REGULAR, HUMAN 100 UNIT/ML 3 ML VIAL SQ PRN ×2 (06:07→11:46)
[2016-11-28 07:18] LABS: BASOPHILS % (AUTO) 0.2 % (0.0-2.0); DIFF TOTAL % 100 %; EOSINOPHILS # (AUTO) 0.5 /CMM (0.0-0.7); HEMATOCRIT 31 % (39-51); HEMOGLOBIN 9.9 g/dL (13.5-17.5); LYMPHOCYTES # (AUTO) 1.5 /CMM (0.8-4.8); LYMPHOCYTES % (AUTO) 11.7 % (20.0-44.0); MEAN CORPUSCULAR HEMOGLOBIN 27 PG (26.0-33.0); MEAN CORPUSCULAR HGB CONC 32 g/dl (31.0-36.0); MEAN CORPUSCULAR VOLUME 83 fL (80-96); MONOCYTES # (AUTO) 0.7 /CMM (0.1-1.30); MONOCYTES % (AUTO) 5.8 % (2.0-12.0); NEUTROPHILS # (AUTO) 9.8 /CMM (1.8-8.9); NEUTROPHILS % (AUTO) 78.3 % (43.0-81.0); PLATELET COUNT (AUTO) 387 /CMM (150-450); RED BLOOD CELL COUNT(AUTO) 3.74 MIL/uL (4.5-6.0); WHITE BLOOD COUNT (AUTO) 12.6 K/uL (4.3-11.0)
[2016-11-28] MEDS: IPRATROPIUM NEB FS 0.5 MG/2.5 ML AMPUL.NEB IH SCH ×3 (07:34→15:30)
[2016-11-28] MEDS: ALBUTEROL FS 2.5 MG/0.5 ML VIAL.NEB NEB SCH ×3 (07:34→15:30)
[2016-11-28 08:00] VITALS: BP 111/71
[2016-11-28] MEDS: COLISTIMETHATE SODIUM 150 MG VIAL NEB SCH (08:00)
[2016-11-28 08:03] LABS: CALCIUM, SERUM 9.3 mg/dL (8.5-10.1); CREATININE 1.2 mg/dL (0.6-1.3); POTASSIUM 4.3 mmol/L (3.5-5.1)
[2016-11-28] MEDS: DOCUSATE SODIUM LIQ 100 MG/10 ML UDC GT SCH (09:00)
[2016-11-28] MEDS: ACIDOPHILUS/BULGARICUS 1 EACH TAB.CHEW GT SCH (09:39)
[2016-11-28] MEDS: glyBURIDE 5 MG TABLET GT SCH (09:39)
[2016-11-28] MEDS: ASCORBIC ACID 500 MG TABLET GT SCH (09:39)
[2016-11-28] MEDS: LEVETIRACETAM SOL (5 ML) 100 MG/ML UDC GT SCH (09:39)
[2016-11-28] MEDS: VORICONAZOLE 200 MG TABLET GT SCH (09:39)
[2016-11-28] MEDS: ENOXAPARIN SODIUM 40 MG/0.4 ML DISP.SYRIN SQ SCH (09:40)
[2016-11-28 16:08] VITALS: BP 117/62
== END 2016-11-28 16:15 | DRG 871 ==
LOC: ER 06:41 → ICU 08:55 → TELE-TD 11-24 15:11 → TELE1 11-26 12:34 → MEDSG1 11-28 09:52
PROVIDERS: ADMIT Nurse Practitioner Acute Care; ATTEND Nurse Practitioner Acute Care
PROC: 05H533Z Insertion of Infusion Device into Right Subclavian Vein, Percutaneous Approach (ICD-10-PCS; 2016-11-19)
PROC: B546ZZA Ultrasonography of Right Subclavian Vein, Guidance (ICD-10-PCS; 2016-11-19)
PROC: 06HM33Z Insertion of Infusion Device into Right Femoral Vein, Percutaneous Approach (ICD-10-PCS; 2016-11-20)
PROC: 30233N1 Transfusion of Nonautologous Red Blood Cells into Peripheral Vein, Percutaneous Approach (ICD-10-PCS; principal; 2016-11-23)
DX: A41.9 Sepsis, unspecified organism (principal); E43 Unspecified severe protein-calorie malnutrition; I50.33 Acute on chronic diastolic (congestive) heart failure; J96.21 Acute and chronic respiratory failure with hypoxia; N17.0 Acute kidney failure with tubular necrosis; K72.00 Acute and subacute hepatic failure without coma; R53.2 Functional quadriplegia; G93.40 Encephalopathy, unspecified; R65.21 Severe sepsis with septic shock; J18.9 Pneumonia, unspecified organism; I21.4 Non-ST elevation (NSTEMI) myocardial infarction; D68.59 Other primary thrombophilia; I13.0 Hypertensive heart and chronic kidney disease with heart failure and stage 1 through stage 4 chronic kidney disease, or unspecified chronic kidney disease; N18.4 Chronic kidney disease, stage 4 (severe); E87.2 Acidosis; E87.0 Hyperosmolality and hypernatremia; B37.49 Other urogenital candidiasis; E11.22 Type 2 diabetes mellitus with diabetic chronic kidney disease; E78.5 Hyperlipidemia, unspecified; K21.0 Gastro-esophageal reflux disease with esophagitis; B95.62 Methicillin resistant Staphylococcus aureus infection as the cause of diseases classified elsewhere; D63.8 Anemia in other chronic diseases classified elsewhere; E11.65 Type 2 diabetes mellitus with hyperglycemia; E87.6 Hypokalemia; Z79.4 Long term (current) use of insulin; Z87.11 Personal history of peptic ulcer disease; Z93.0 Tracheostomy status; G40.909 Epilepsy, unspecified, not intractable, without status epilepticus; E83.42 Hypomagnesemia; F03.90 Unspecified dementia, unspecified severity, without behavioral disturbance, psychotic disturbance, mood disturbance, and anxiety; N50.89 Other specified disorders of the male genital organs; L98.9 Disorder of the skin and subcutaneous tissue, unspecified; Z68.32 Body mass index [BMI] 32.0-32.9, adult; I99.8 Other disorder of circulatory system; K29.80 Duodenitis without bleeding; E66.01 Morbid (severe) obesity due to excess calories; R13.10 Dysphagia, unspecified
CPT/HCPCS: 31720; 36415; 36600; 71010-TC; 80048-TC; 80053-TC; 80061-TC; 80076-TC; 80202-TC; 81000-TC; 82272-TC; 82728-TC; 82962-TC; 83540-TC; 83605-TC; 83735-TC; 84100-TC; 84443-TC; 84484-TC; 85025-TC; 85730-TC; 86850-TC; 86901; 86921-TC; 87040-TC; 87070-TC; 87081-TC; 87086-TC; 87186-TC; 93307-TC; 93925-TC; 93970-TC; 94799-TC; A4216; A4606; C1751; J0770; J1450; J1650; J1815; J1940; J1953; J2185; J2543; J2765; J3370; J3475; J3480; J7030; J7040; J7050; J7060; P9016-BL; Z7610

== ENCOUNTER 2016-12-02 00:44 | Inpatient (IN) | payer MEDICARE, OTHER ==
[2016-12-02] VITALS (75 sets, daily range): BP systolic 61–152; BP diastolic 23–102
[~2016-12-02] VITALS: Ht 177.8 cm; Wt 99.8 kg
[~2016-12-02 00:44] MED LIST changes: -ACET160S3 GT; +ACET650S26 GT; +ACID1TAB12 GT; +ALBU1.257 IH; +IPRA0.2S9 IH; -MULT1TAB11 GT; +NORM10004 IV; -SACC250C6 GT
[2016-12-02] MEDS ORDERED: IV NS 0.9% 1,000 ML BAG IV ONE ×3 (01:00)
[2016-12-02] MEDS ORDERED: IBUPROFEN 400 MG TABLET ONE (01:00)
[2016-12-02] MEDS ORDERED: IBUPROFEN 400 MG TABLET PO ONE (01:00)
[2016-12-02] MEDS ORDERED: ACETAMINOPHEN ES 500 MG TABLET ONE (01:00)
[2016-12-02] MEDS ORDERED: ACETAMINOPHEN 650 MG/SUPP.RECT RC ONE (01:00)
[2016-12-02] MEDS ORDERED: IV NS 0.9% 3,000 ML ONE (01:00)
[2016-12-02] MEDS ORDERED: IV SET PRIMARY PUMP SET 1 EA INFUS.SET MC ONE ×5 (01:00→11:24)
[2016-12-02 01:33] LABS: BASOPHILS % (AUTO) 0.2 % (0.0-2.0); DIFF TOTAL % 100 %; EOSINOPHILS % (AUTO) 0.1 % (0.0-6.0); HEMATOCRIT 32 % (39-51); HEMOGLOBIN 10.1 g/dL (13.5-17.5); LYMPHOCYTES # (AUTO) 2.3 /CMM (0.8-4.8); LYMPHOCYTES % (AUTO) 8.9 % (20.0-44.0); MEAN CORPUSCULAR HEMOGLOBIN 26 PG (26.0-33.0); MEAN CORPUSCULAR HGB CONC 32 g/dl (31.0-36.0); MEAN CORPUSCULAR VOLUME 82 fL (80-96); MONOCYTES # (AUTO) 1.6 /CMM (0.1-1.30); MONOCYTES % (AUTO) 6.4 % (2.0-12.0); NEUTROPHILS # (AUTO) 21.7 /CMM (1.8-8.9); NEUTROPHILS % (AUTO) 84.4 % (43.0-81.0); PLATELET COUNT (AUTO) 558 /CMM (150-450); RED BLOOD CELL COUNT(AUTO) 3.84 MIL/uL (4.5-6.0); WHITE BLOOD COUNT (AUTO) 25.7 K/uL (4.3-11.0)
[2016-12-02 01:34] LABS: KETONES,URINE TRACE (NEGATIVE); LEUKOCYTE ESTERASE ,URINE 3+ (NEGATIVE)
[2016-12-02 01:46] LABS: ADD UA MICROSCOPIC YES
[2016-12-02 01:47] LABS: ADD URINE CULTURE YES; RBC,URINE 0-2 /HPF (0-2); WBC,URINE TOO NUMEROUS TO COUN /HPF (0-3)
[2016-12-02 01:52] LABS: INR 1.17 (0.87-1.13); PROTHROMBIN TIME 12.7 SECS (9.5-12.7)
[2016-12-02] MEDS ORDERED: PIPERACILLIN /TAZOBACTAM 3.375 G in IV D5W 50 ML IV ONE (02:00)
[2016-12-02] MEDS ORDERED: LEVOFLOXACIN 750 MG /D5W 150ML 150 ML IV ONE ×2 (02:00→02:04)
[2016-12-02] MEDS ORDERED: VANCOMYCIN 1 GM in IV D5W 250 ML IV ONE (02:00)
[2016-12-02] MEDS ORDERED: VANCOMYCIN 1 GM VIAL ONE (02:03)
[2016-12-02] MEDS ORDERED: IV D5W 50 ML IV ONE (02:04)
[2016-12-02] MEDS ORDERED: IV D5W 250 ML IV ONE (02:04)
[2016-12-02 02:05] LABS: TROPONIN I 0.178 ng/mL (0.00-0.056)
[2016-12-02 02:11] LABS: ALANINE AMINOTRANSFERASE 46 U/L (12-78); ALBUMIN 1.9 g/dL (3.4-5.0); ANION GAP 14 (5-14); ASPARTATE AMINOTRANSFERASE 28 U/L (15-37); BILIRUBIN,TOTAL 0.2 mg/dL (0.2-1.0); CALCIUM, SERUM 10.3 mg/dL (8.5-10.1); CARBON DIOXIDE 29 mmol/L (21-32); CHLORIDE 107 mmol/L (98-107); GFR 21 mL/min (>60); GLUCOSE 205 mg/dL (74-106); POTASSIUM 5.4 mmol/L (3.5-5.1); SODIUM SERUM 145 mmol/L (136-145); TOTAL PROTEIN, SERUM 8.4 g/dL (6.4-8.2)
[2016-12-02 02:16] LABS: LACTIC ACID 2.7 mmol/L (0.4-2.0); UREA NITROGEN, BLOOD 84 mg/dL (7-18)
[2016-12-02 02:17] LABS: INDIRECT BILIRUBIN 0.2 mg/dL (0.0-1.1)
[2016-12-02 02:26] LABS: *LACTIC ACID REFLEX FLAG YES
[2016-12-02] MEDS ORDERED: ASPIRIN 325 MG TABLET ONE (02:35)
[2016-12-02] MEDS ORDERED: IV D5W 500 ML IV ONE (02:36)
[2016-12-02] MEDS ORDERED: NOREPINEPHRINE 4 MG/4 ML AMPUL IV ONE (02:36)
[2016-12-02] MEDS ORDERED: NOREPINEPHRINE 8 MG in IV D5W 500 ML IV PRN ×2 (03:00→03:30)
[2016-12-02] MEDS ORDERED: ASPIRIN 325 MG TABLET PO ONE (03:00)
[2016-12-02] MEDS ORDERED: ONDANSETRON HCL/PF 4 MG/2 ML VIAL IVP PRN (03:30)
[2016-12-02] MEDS ORDERED: ACETAMINOPHEN 650 MG/SUPP.RECT RC PRN (03:30)
[2016-12-02 04:10] LABS: ABG BASE EXCESS 3.3 mmol/L; ABG HCO3 29.3 mmol/L; ABG PCO2 51.8 mmHg (35.0-45.0); ABG PO2 85.8 mmHg (75.0-100.0); ABG TOTAL HEMOGLOBIN 9.7 G/dL (13.5-18.0); ALLEN TEST Pass; AaDO2 575.4 mmHg; O2Hb 92.9 % (94.0-97.0)
[2016-12-02] MEDS: NOREPINEPHRINE 8 MG in IV D5W 500 ML IV PRN ×3 (04:35→22:48)
[2016-12-02] MEDS ORDERED: PANTOPRAZOLE 40 MG VIAL ONE (05:01)
[2016-12-02] MEDS: PANTOPRAZOLE 40 MG VIAL IV SCH (05:05)
[2016-12-02 05:27] LABS: PHOSPHORUS 5.7 mg/dL (2.5-4.9)
[2016-12-02] MEDS: ZOSYN IVPB 3.375 G in IV D5W 50ml IV SCH ×2 (07:42→12:30)
[2016-12-02] MEDS ORDERED: FEE PK DOSING 1 MIN EA MC ONE (07:54)
[2016-12-02] MEDS: ACETYLCYSTEINE 10% SOLN 400 MG/4 ML VIAL NEB SCH ×3 (07:59→23:57)
[2016-12-02] MEDS ORDERED: SODIUM POLYSTYRENE SULFONATE 15 G/60 ML BOTTLE GT ONE (10:30)
[2016-12-02] MEDS: ASPIRIN 81 MG TAB.CHEW GT SCH (11:15)
[2016-12-02] MEDS: HEPARIN SODIUM, PORCINE 5000 UNITS/1 ML VIAL SQ SCH ×2 (11:16→20:07)
[2016-12-02] MEDS: IV D5/0.45 NACL 1,000 ML IV PRN (11:29)
[2016-12-02] MEDS ORDERED: Z GUARD REMEDY 2 OZ OINT TP PRN (12:30)
[2016-12-02] MEDS: HYDROGEL DRESSING 90 GM TUBE TP SCH (13:37)
[2016-12-02] MEDS: Z GUARD REMEDY 2 OZ OINT TP SCH ×2 (13:37→16:19)
[2016-12-02] MEDS ORDERED: COLISTIMETHATE SODIUM 100 MG in IV NS 0.9% 50 ML IV SCH (17:00)
[2016-12-02] MEDS: COLISTIMETHATE SODIUM 100 MG in IV NS 0.9% 50 ML IV SCH (18:18)
[2016-12-02] MEDS: LINEZOLID RTU BAG 600 MG in PREMIX 1 EA IV SCH (21:16)
[2016-12-03] VITALS (104 sets, daily range): BP systolic 64–136; BP diastolic 19–84
[2016-12-03] MEDS ORDERED: VANCOMYCIN 1 GM in IV D5W 250 ML IV SCH ×2
[2016-12-03] MEDS: IV D5/0.45 NACL 1,000 ML IV PRN (00:57)
[2016-12-03 02:46] LABS: CREATININE, URINE 32.1 MG/DL (30.0-125.0)
[2016-12-03] MEDS ORDERED: ACETAMINOPHEN 650 MG/20.3 ML UDC ONE (04:21)
[2016-12-03] MEDS: ACETAMINOPHEN 650 MG/20.3 ML UDC NG PRN (04:28)
[2016-12-03] MEDS: PANTOPRAZOLE 40 MG VIAL IV SCH (04:28)
[2016-12-03 05:04] LABS: BASOPHILS # (AUTO) 0.1 /CMM (0.0-0.2); BASOPHILS % (AUTO) 0.4 % (0.0-2.0); DIFF TOTAL % 100 %; EOSINOPHILS # (AUTO) 0.4 /CMM (0.0-0.7); HEMATOCRIT 30 % (39-51); HEMOGLOBIN 9.1 g/dL (13.5-17.5); LYMPHOCYTES # (AUTO) 1.3 /CMM (0.8-4.8); LYMPHOCYTES % (AUTO) 5.9 % (20.0-44.0); MEAN CORPUSCULAR HEMOGLOBIN 26 PG (26.0-33.0); MEAN CORPUSCULAR HGB CONC 31 g/dl (31.0-36.0); MEAN CORPUSCULAR VOLUME 84 fL (80-96); MONOCYTES # (AUTO) 0.9 /CMM (0.1-1.30); MONOCYTES % (AUTO) 4.1 % (2.0-12.0); NEUTROPHILS # (AUTO) 19.7 /CMM (1.8-8.9); NEUTROPHILS % (AUTO) 87.6 % (43.0-81.0); PLATELET COUNT (AUTO) 556 /CMM (150-450); RED BLOOD CELL COUNT(AUTO) 3.54 MIL/uL (4.5-6.0); WHITE BLOOD COUNT (AUTO) 22.5 K/uL (4.3-11.0)
[2016-12-03 05:23] LABS: CALCIUM, SERUM 9.1 mg/dL (8.5-10.1); CREATININE 2.1 mg/dL (0.6-1.3); PHOSPHORUS 3.6 mg/dL (2.5-4.9); POTASSIUM 4.2 mmol/L (3.5-5.1)
[2016-12-03] MEDS ORDERED: *INSULIN REGULAR(HUMULIN R)HUM 100 UNIT/ML VIAL SQ PRN (06:00)
[2016-12-03] MEDS ORDERED: INSULIN REGULAR, HUMAN 100 UNIT/ML 3 ML VIAL SQ PRN ×2 (06:00→18:00)
[2016-12-03] MEDS ORDERED: DEXTROSE 50%-WATER 50 ML DISP.SYRIN IV PRN ×2 (06:00→12:00)
[2016-12-03 06:15] LABS: HYPOCHROMASIA 1+; PLATELET ESTIMATE INCREASED
[2016-12-03] MEDS ORDERED: BLOOD SUGAR DIAGNOSTIC 1 EACH STRIP VI SCH ×2 (07:30→18:00)
[2016-12-03] MEDS: LINEZOLID RTU BAG 600 MG in PREMIX 1 EA IV SCH ×2 (08:03→20:10)
[2016-12-03] MEDS: HEPARIN SODIUM, PORCINE 5000 UNITS/1 ML VIAL SQ SCH ×2 (08:05→20:11)
[2016-12-03] MEDS: ASPIRIN 81 MG TAB.CHEW GT SCH (08:06)
[2016-12-03] MEDS: Z GUARD REMEDY 2 OZ OINT TP SCH ×2 (08:07→16:33)
[2016-12-03] MEDS: HYDROGEL DRESSING 90 GM TUBE TP SCH (08:07)
[2016-12-03] MEDS: ACETYLCYSTEINE 10% SOLN 400 MG/4 ML VIAL NEB SCH ×3 (08:52→23:09)
[2016-12-03] MEDS: NOREPINEPHRINE 8 MG in IV D5W 500 ML IV PRN ×2 (09:36→21:11)
[2016-12-03] MEDS: IV NS 0.9% 1,000 ML IV PRN (11:57)
[2016-12-03] MEDS: BLOOD SUGAR DIAGNOSTIC 1 EACH STRIP IN SCH ×3 (12:00→23:21)
[2016-12-03] MEDS: INSULIN REGULAR, HUMAN 100 UNIT/ML 3 ML VIAL SQ PRN ×3 (12:00→23:22)
[2016-12-03] MEDS: LACTOBACILLUS RHAMNOSUS GG 1 EACH CAP.SPRINK PO SCH (16:32)
[2016-12-03] MEDS: MICAFUNGIN SODIUM 100 MG in IV NS 0.9% 100 ML IV SCH (20:10)
[2016-12-03] MEDS ORDERED: LEVOFLOXACIN 750 MG /D5W 150ML 750 MG in PREMIX 1 EA IV SCH (23:00)
[2016-12-03] MEDS: VANCOMYCIN HCL 125 MG/2.5 ML ORAL.SUSP PO SCH (23:20)
[2016-12-04] VITALS (101 sets, daily range): BP systolic 82–136; BP diastolic 46–102
[2016-12-04] MEDS ORDERED: VANCOMYCIN FOR PO/GT USE 500 MG ORAL.SUSP PO SCH
[2016-12-04] MEDS: IV NS 0.9% 1,000 ML IV PRN (00:22)
[2016-12-04 05:24] LABS: BASOPHILS % (AUTO) 0.1 % (0.0-2.0); DIFF TOTAL % 100 %; EOSINOPHILS # (AUTO) 0.5 /CMM (0.0-0.7); EOSINOPHILS % (AUTO) 3.2 % (0.0-6.0); HEMATOCRIT 27 % (39-51); HEMOGLOBIN 8.7 g/dL (13.5-17.5); LYMPHOCYTES # (AUTO) 1.6 /CMM (0.8-4.8); LYMPHOCYTES % (AUTO) 9.7 % (20.0-44.0); MEAN CORPUSCULAR HEMOGLOBIN 27 PG (26.0-33.0); MEAN CORPUSCULAR HGB CONC 32 g/dl (31.0-36.0); MEAN CORPUSCULAR VOLUME 83 fL (80-96); MONOCYTES # (AUTO) 0.2 /CMM (0.1-1.30); MONOCYTES % (AUTO) 1.1 % (2.0-12.0); NEUTROPHILS # (AUTO) 13.9 /CMM (1.8-8.9); NEUTROPHILS % (AUTO) 85.9 % (43.0-81.0); PLATELET COUNT (AUTO) 448 /CMM (150-450); RED BLOOD CELL COUNT(AUTO) 3.29 MIL/uL (4.5-6.0); WHITE BLOOD COUNT (AUTO) 16.2 K/uL (4.3-11.0)
[2016-12-04 05:31] LABS: CALCIUM, SERUM 8.1 mg/dL (8.5-10.1); CREATININE 1.5 mg/dL (0.6-1.3); PHOSPHORUS 2.5 mg/dL (2.5-4.9); POTASSIUM 3.5 mmol/L (3.5-5.1)
[2016-12-04] MEDS: PANTOPRAZOLE 40 MG VIAL IV SCH (05:52)
[2016-12-04] MEDS: VANCOMYCIN HCL 125 MG/2.5 ML ORAL.SUSP PO SCH ×4 (05:52→23:45)
[2016-12-04] MEDS: COLISTIMETHATE SODIUM 100 MG in IV NS 0.9% 50 ML IV SCH (05:53)
[2016-12-04] MEDS: BLOOD SUGAR DIAGNOSTIC 1 EACH STRIP IN SCH ×4 (06:06→23:45)
[2016-12-04] MEDS: INSULIN REGULAR, HUMAN 100 UNIT/ML 3 ML VIAL SQ PRN ×4 (06:07→23:47)
[2016-12-04] MEDS: ACETYLCYSTEINE 10% SOLN 400 MG/4 ML VIAL NEB SCH ×3 (07:49→23:24)
[2016-12-04] MEDS: ASPIRIN 81 MG TAB.CHEW GT SCH (08:00)
[2016-12-04] MEDS: ACETAMINOPHEN 650 MG/20.3 ML UDC NG PRN (08:00)
[2016-12-04] MEDS: LACTOBACILLUS RHAMNOSUS GG 1 EACH CAP.SPRINK PO SCH ×2 (08:00→17:13)
[2016-12-04] MEDS: LINEZOLID RTU BAG 600 MG in PREMIX 1 EA IV SCH ×2 (08:00→20:30)
[2016-12-04] MEDS: HEPARIN SODIUM, PORCINE 5000 UNITS/1 ML VIAL SQ SCH ×2 (08:01→20:32)
[2016-12-04] MEDS: Z GUARD REMEDY 2 OZ OINT TP SCH ×2 (08:02→17:15)
[2016-12-04] MEDS: HYDROGEL DRESSING 90 GM TUBE TP SCH (08:03)
[2016-12-04] MEDS ORDERED: SECONDARY IV SET 1 EA INFUS.SET MC ONE ×2 (08:04→17:08)
[2016-12-04 09:49] LABS: ABG BASE EXCESS 3.7 mmol/L; ABG HCO3 28.4 mmol/L; ABG PCO2 43.7 mmHg (35.0-45.0); ABG PH 7.431 (7.350-7.450); ABG PO2 86.9 mmHg (75.0-100.0); ABG TOTAL HEMOGLOBIN 8.8 G/dL (13.5-18.0); ALLEN TEST Pass
[2016-12-04] MEDS: METRONIDAZOLE 500MG/ NS 100ML 500 MG in PREMIX 1 EA IV SCH ×2 (17:13→23:45)
[2016-12-04] MEDS: MICAFUNGIN SODIUM 100 MG in IV NS 0.9% 100 ML IV SCH (20:30)
[2016-12-05] VITALS (76 sets, daily range): BP systolic 59–134; BP diastolic 32–102
[2016-12-05] MEDS ORDERED: IV NS 0.9% 250 ML IV ONE (04:42)
[2016-12-05 05:07] LABS: BASOPHILS # (AUTO) 0.1 /CMM (0.0-0.2); BASOPHILS % (AUTO) 0.5 % (0.0-2.0); DIFF TOTAL % 100 %; EOSINOPHILS # (AUTO) 0.6 /CMM (0.0-0.7); EOSINOPHILS % (AUTO) 3.9 % (0.0-6.0); HEMATOCRIT 27 % (39-51); HEMOGLOBIN 8.4 g/dL (13.5-17.5); LYMPHOCYTES # (AUTO) 1.5 /CMM (0.8-4.8); LYMPHOCYTES % (AUTO) 10.1 % (20.0-44.0); MEAN CORPUSCULAR HEMOGLOBIN 26 PG (26.0-33.0); MEAN CORPUSCULAR HGB CONC 31 g/dl (31.0-36.0); MEAN CORPUSCULAR VOLUME 83 fL (80-96); MONOCYTES # (AUTO) 0.6 /CMM (0.1-1.30); MONOCYTES % (AUTO) 3.7 % (2.0-12.0); NEUTROPHILS # (AUTO) 12.5 /CMM (1.8-8.9); NEUTROPHILS % (AUTO) 81.8 % (43.0-81.0); PLATELET COUNT (AUTO) 425 /CMM (150-450); RED BLOOD CELL COUNT(AUTO) 3.26 MIL/uL (4.5-6.0); WHITE BLOOD COUNT (AUTO) 15.3 K/uL (4.3-11.0)
[2016-12-05 05:17] LABS: CALCIUM, SERUM 8.1 mg/dL (8.5-10.1); CREATININE 1.3 mg/dL (0.6-1.3); POTASSIUM 3.4 mmol/L (3.5-5.1)
[2016-12-05] MEDS: PANTOPRAZOLE 40 MG VIAL IV SCH (05:39)
[2016-12-05] MEDS: VANCOMYCIN HCL 125 MG/2.5 ML ORAL.SUSP PO SCH ×4 (05:39→23:44)
[2016-12-05] MEDS: BLOOD SUGAR DIAGNOSTIC 1 EACH STRIP IN SCH ×4 (05:39→23:41)
[2016-12-05] MEDS: INSULIN REGULAR, HUMAN 100 UNIT/ML 3 ML VIAL SQ PRN ×3 (05:41→23:43)
[2016-12-05] MEDS: ACETYLCYSTEINE 10% SOLN 400 MG/4 ML VIAL NEB SCH ×3 (07:12→23:53)
[2016-12-05] MEDS: LINEZOLID RTU BAG 600 MG in PREMIX 1 EA IV SCH ×2 (08:27→20:04)
[2016-12-05] MEDS: ASPIRIN 81 MG TAB.CHEW GT SCH (08:27)
[2016-12-05] MEDS: METRONIDAZOLE 500MG/ NS 100ML 500 MG in PREMIX 1 EA IV SCH ×3 (08:27→23:44)
[2016-12-05] MEDS: LACTOBACILLUS RHAMNOSUS GG 1 EACH CAP.SPRINK PO SCH ×2 (08:27→17:04)
[2016-12-05] MEDS: HYDROGEL DRESSING 90 GM TUBE TP SCH (08:28)
[2016-12-05] MEDS: Z GUARD REMEDY 2 OZ OINT TP SCH ×2 (08:28→17:04)
[2016-12-05] MEDS: HEPARIN SODIUM, PORCINE 5000 UNITS/1 ML VIAL SQ SCH ×2 (08:29→20:05)
[2016-12-05] MEDS ORDERED: POTASSIUM CHLORIDE 20 MEQ POWDER PACKET NG SCH (12:00)
[2016-12-05] MEDS: COLISTIMETHATE SODIUM 100 MG in IV NS 0.9% 50 ML IV SCH (17:04)
[2016-12-05] MEDS ORDERED: SECONDARY IV SET 1 EA INFUS.SET MC ONE ×2 (17:04→20:10)
[2016-12-05] MEDS: MICAFUNGIN SODIUM 100 MG in IV NS 0.9% 100 ML IV SCH (20:04)
[2016-12-06] VITALS (29 sets, daily range): BP systolic 99–144; BP diastolic 37–79
[2016-12-06 05:02] LABS: BASOPHILS # (AUTO) 0.1 /CMM (0.0-0.2); BASOPHILS % (AUTO) 0.5 % (0.0-2.0); DIFF TOTAL % 100 %; EOSINOPHILS # (AUTO) 0.5 /CMM (0.0-0.7); EOSINOPHILS % (AUTO) 3.8 % (0.0-6.0); HEMATOCRIT 26 % (39-51); HEMOGLOBIN 8.4 g/dL (13.5-17.5); LYMPHOCYTES # (AUTO) 1.4 /CMM (0.8-4.8); LYMPHOCYTES % (AUTO) 9.9 % (20.0-44.0); MEAN CORPUSCULAR HEMOGLOBIN 26 PG (26.0-33.0); MEAN CORPUSCULAR HGB CONC 32 g/dl (31.0-36.0); MEAN CORPUSCULAR VOLUME 82 fL (80-96); MONOCYTES # (AUTO) 0.7 /CMM (0.1-1.30); MONOCYTES % (AUTO) 4.9 % (2.0-12.0); NEUTROPHILS # (AUTO) 11.2 /CMM (1.8-8.9); NEUTROPHILS % (AUTO) 80.9 % (43.0-81.0); PLATELET COUNT (AUTO) 413 /CMM (150-450); WHITE BLOOD COUNT (AUTO) 13.9 K/uL (4.3-11.0)
[2016-12-06] MEDS: PANTOPRAZOLE 40 MG VIAL IV SCH (05:09)
[2016-12-06] MEDS: BLOOD SUGAR DIAGNOSTIC 1 EACH STRIP IN SCH ×4 (05:09→23:18)
[2016-12-06] MEDS: VANCOMYCIN HCL 125 MG/2.5 ML ORAL.SUSP PO SCH (05:09)
[2016-12-06] MEDS: INSULIN REGULAR, HUMAN 100 UNIT/ML 3 ML VIAL SQ PRN ×4 (05:10→23:19)
[2016-12-06 05:24] LABS: ALBUMIN 1.5 g/dL (3.4-5.0); CREATININE 1.2 mg/dL (0.6-1.3); POTASSIUM 3.3 mmol/L (3.5-5.1)
[2016-12-06] MEDS: ACETYLCYSTEINE 10% SOLN 400 MG/4 ML VIAL NEB SCH ×2 (07:05→15:07)
[2016-12-06] MEDS: Z GUARD REMEDY 2 OZ OINT TP SCH ×2 (08:17→16:50)
[2016-12-06] MEDS: LACTOBACILLUS RHAMNOSUS GG 1 EACH CAP.SPRINK PO SCH ×2 (08:17→16:47)
[2016-12-06] MEDS: HYDROGEL DRESSING 90 GM TUBE TP SCH (08:17)
[2016-12-06] MEDS: METRONIDAZOLE 500MG/ NS 100ML 500 MG in PREMIX 1 EA IV SCH (08:17)
[2016-12-06] MEDS: ASPIRIN 81 MG TAB.CHEW GT SCH (08:17)
[2016-12-06] MEDS: HEPARIN SODIUM, PORCINE 5000 UNITS/1 ML VIAL SQ SCH ×2 (08:18→20:26)
[2016-12-06] MEDS: LINEZOLID RTU BAG 600 MG in PREMIX 1 EA IV SCH ×2 (09:25→20:25)
[2016-12-06] MEDS ORDERED: POTASSIUM CHLORIDE 20 MEQ POWDER PACKET GT ONE (10:30)
[2016-12-06] MEDS: NEOMY SULF/BACITRAC ZN/POLY 15 GM TUBE TP SCH (11:11)
[2016-12-06] MEDS: GLYTROL 1,000 ML BAG GT PRN (13:13)
[2016-12-06] MEDS: MICAFUNGIN SODIUM 100 MG in IV NS 0.9% 100 ML IV SCH (20:25)
[2016-12-06] MEDS ORDERED: SECONDARY IV SET 1 EA INFUS.SET MC ONE (20:27)
[2016-12-06] MEDS ORDERED: IV SET PRIMARY PUMP SET 1 EA INFUS.SET MC ONE (20:27)
[2016-12-06] MEDS ORDERED: IV NS 0.9% 250 ML IV ONE (20:27)
[2016-12-07] VITALS: BP 118/66
[2016-12-07] MEDS: ACETYLCYSTEINE 10% SOLN 400 MG/4 ML VIAL NEB SCH ×4 (00:26→22:19)
[2016-12-07 04:00] VITALS: BP 99/72
[2016-12-07] MEDS: PANTOPRAZOLE 40 MG VIAL IV SCH (05:11)
[2016-12-07] MEDS: BLOOD SUGAR DIAGNOSTIC 1 EACH STRIP IN SCH ×3 (05:11→17:22)
[2016-12-07] MEDS: INSULIN REGULAR, HUMAN 100 UNIT/ML 3 ML VIAL SQ PRN ×3 (05:33→17:24)
[2016-12-07] MEDS: GLYTROL 1,000 ML BAG GT PRN ×2 (06:14→19:08)
[2016-12-07] MEDS ORDERED: SECONDARY IV SET 1 EA INFUS.SET MC ONE ×3 (06:18→13:43)
[2016-12-07] MEDS: COLISTIMETHATE SODIUM 100 MG in IV NS 0.9% 50 ML IV SCH (06:21)
[2016-12-07 06:58] LABS: CALCIUM, SERUM 8.5 mg/dL (8.5-10.1); CREATININE 1.1 mg/dL (0.6-1.3); PHOSPHORUS 3.1 mg/dL (2.5-4.9); POTASSIUM 3.8 mmol/L (3.5-5.1)
[2016-12-07 07:21] LABS: BASOPHILS # (AUTO) 0.1 /CMM (0.0-0.2); BASOPHILS % (AUTO) 0.6 % (0.0-2.0); EOSINOPHILS # (AUTO) 0.8 /CMM (0.0-0.7); EOSINOPHILS % (AUTO) 6.4 % (0.0-6.0); HEMATOCRIT 27 % (39-51); HEMOGLOBIN 8.4 g/dL (13.5-17.5); LYMPHOCYTES # (AUTO) 1.6 /CMM (0.8-4.8); LYMPHOCYTES % (AUTO) 13.3 % (20.0-44.0); MEAN CORPUSCULAR HEMOGLOBIN 26 PG (26.0-33.0); MEAN CORPUSCULAR HGB CONC 31 g/dl (31.0-36.0); MEAN CORPUSCULAR VOLUME 83 fL (80-96); MONOCYTES # (AUTO) 0.9 /CMM (0.1-1.30); MONOCYTES % (AUTO) 7.3 % (2.0-12.0); NEUTROPHILS # (AUTO) 8.6 /CMM (1.8-8.9); NEUTROPHILS % (AUTO) 72.4 % (43.0-81.0); PLATELET COUNT (AUTO) 397 /CMM (150-450); RED BLOOD CELL COUNT(AUTO) 3.23 MIL/uL (4.5-6.0); WHITE BLOOD COUNT (AUTO) 11.9 K/uL (4.3-11.0)
[2016-12-07 07:47] LABS: DIFF TOTAL % 100 %
[2016-12-07 08:00] VITALS: BP 119/78
[2016-12-07] MEDS: ASPIRIN 81 MG TAB.CHEW GT SCH (08:47)
[2016-12-07] MEDS: LINEZOLID RTU BAG 600 MG in PREMIX 1 EA IV SCH (08:47)
[2016-12-07] MEDS: LACTOBACILLUS RHAMNOSUS GG 1 EACH CAP.SPRINK PO SCH ×2 (08:47→17:21)
[2016-12-07] MEDS: HEPARIN SODIUM, PORCINE 5000 UNITS/1 ML VIAL SQ SCH ×2 (08:48→21:01)
[2016-12-07] MEDS: NEOMY SULF/BACITRAC ZN/POLY 15 GM TUBE TP SCH (08:49)
[2016-12-07] MEDS: Z GUARD REMEDY 2 OZ OINT TP SCH ×2 (08:49→17:22)
[2016-12-07 08:52] LABS: ABG BASE EXCESS 3.3 mmol/L; ABG HCO3 27.7 mmol/L; ABG PCO2 41.2 mmHg (35.0-45.0); ABG PH 7.445 (7.350-7.450); ABG PO2 96.4 mmHg (75.0-100.0); ABG TOTAL HEMOGLOBIN 8.8 G/dL (13.5-18.0); ALLEN TEST Pass; AaDO2 141.4 mmHg
[2016-12-07] MEDS: HYDROGEL DRESSING 90 GM TUBE TP SCH (09:39)
[2016-12-07] MEDS: CEFTRIAXONE 1 G in IV D5W 50 ML IV SCH (11:02)
[2016-12-07 12:00] VITALS: BP_SYST 113; BP_SYST 121; BP_DIAS 65; BP_DIAS 72
[2016-12-07] MEDS ORDERED: FEE PK DOSING 1 MIN EA MC ONE (12:08)
[2016-12-07] MEDS: VANCOMYCIN 1 GM in IV D5W 250 ML IV SCH (13:44)
[2016-12-07 16:00] VITALS: BP 113/65
[2016-12-07 20:00] VITALS: BP 116/71
[2016-12-07] MEDS: MICAFUNGIN SODIUM 100 MG in IV NS 0.9% 100 ML IV SCH (20:57)
[2016-12-08] VITALS: BP 128/74
[2016-12-08] MEDS: VANCOMYCIN 1 GM in IV D5W 250 ML IV SCH ×2 (00:18→12:37)
[2016-12-08] MEDS: BLOOD SUGAR DIAGNOSTIC 1 EACH STRIP IN SCH ×4 (00:19→17:53)
[2016-12-08] MEDS: INSULIN REGULAR, HUMAN 100 UNIT/ML 3 ML VIAL SQ PRN ×4 (00:22→17:56)
[2016-12-08 04:00] VITALS: BP 138/75
[2016-12-08] MEDS ORDERED: IV NS 0.9% 250 ML IV ONE (04:50)
[2016-12-08] MEDS: PANTOPRAZOLE 40 MG VIAL IV SCH (05:23)
[2016-12-08 06:42] LABS: CALCIUM, SERUM 8.9 mg/dL (8.5-10.1); POTASSIUM 3.7 mmol/L (3.5-5.1)
[2016-12-08] MEDS: ACETYLCYSTEINE 10% SOLN 400 MG/4 ML VIAL NEB SCH ×3 (07:08→23:49)
[2016-12-08 08:00] VITALS: BP 126/77
[2016-12-08] MEDS: LACTOBACILLUS RHAMNOSUS GG 1 EACH CAP.SPRINK PO SCH ×2 (08:54→17:52)
[2016-12-08] MEDS: ASPIRIN 81 MG TAB.CHEW GT SCH (08:54)
[2016-12-08] MEDS: HYDROGEL DRESSING 90 GM TUBE TP SCH (08:55)
[2016-12-08] MEDS: Z GUARD REMEDY 2 OZ OINT TP SCH ×2 (08:55→17:53)
[2016-12-08] MEDS: NEOMY SULF/BACITRAC ZN/POLY 15 GM TUBE TP SCH (08:56)
[2016-12-08] MEDS: CEFTRIAXONE 1 G in IV D5W 50 ML IV SCH (08:56)
[2016-12-08] MEDS: HEPARIN SODIUM, PORCINE 5000 UNITS/1 ML VIAL SQ SCH ×2 (09:01→20:54)
[2016-12-08 10:11] LABS: ABG BASE EXCESS 7.1 mmol/L; ABG HCO3 32.3 mmol/L; ABG PCO2 49.8 mmHg (35.0-45.0); ABG PO2 76.7 mmHg (75.0-100.0); ABG TOTAL HEMOGLOBIN 9.4 G/dL (13.5-18.0); ALLEN TEST Pass; AaDO2 151.2 mmHg; O2Hb 92.8 % (94.0-97.0)
[2016-12-08] MEDS: METOCLOPRAMIDE HCL 10 MG/2 ML VIAL IV SCH ×2 (10:15→17:52)
[2016-12-08 12:00] VITALS: BP 129/69
[2016-12-08 16:00] VITALS: BP 130/76
[2016-12-08] MEDS: GLYTROL 1,000 ML BAG GT PRN (16:11)
[2016-12-08 20:00] VITALS: BP 121/74
[2016-12-08] MEDS: MICAFUNGIN SODIUM 100 MG in IV NS 0.9% 100 ML IV SCH (20:53)
[2016-12-09] MEDS: BLOOD SUGAR DIAGNOSTIC 1 EACH STRIP IN SCH ×5 (00:44→23:14)
[2016-12-09] MEDS: VANCOMYCIN 1 GM in IV D5W 250 ML IV SCH (00:47)
[2016-12-09] MEDS: INSULIN REGULAR, HUMAN 100 UNIT/ML 3 ML VIAL SQ PRN ×5 (00:50→23:19)
[2016-12-09 01:17] VITALS: BP 130/73
[2016-12-09 04:00] VITALS: BP 133/76
[2016-12-09] MEDS: PANTOPRAZOLE 40 MG VIAL IV SCH (04:57)
[2016-12-09] MEDS: GLYTROL 1,000 ML BAG GT PRN ×2 (04:58→19:06)
[2016-12-09 06:50] LABS: BASOPHILS # (AUTO) 0.1 /CMM (0.0-0.2); BASOPHILS % (AUTO) 0.5 % (0.0-2.0); DIFF TOTAL % 100 %; EOSINOPHILS # (AUTO) 0.8 /CMM (0.0-0.7); EOSINOPHILS % (AUTO) 7.1 % (0.0-6.0); HEMATOCRIT 28 % (39-51); HEMOGLOBIN 8.9 g/dL (13.5-17.5); LYMPHOCYTES # (AUTO) 1.6 /CMM (0.8-4.8); LYMPHOCYTES % (AUTO) 15.5 % (20.0-44.0); MEAN CORPUSCULAR HEMOGLOBIN 26 PG (26.0-33.0); MEAN CORPUSCULAR HGB CONC 31 g/dl (31.0-36.0); MEAN CORPUSCULAR VOLUME 82 fL (80-96); MONOCYTES # (AUTO) 0.8 /CMM (0.1-1.30); MONOCYTES % (AUTO) 7.4 % (2.0-12.0); NEUTROPHILS # (AUTO) 7.4 /CMM (1.8-8.9); NEUTROPHILS % (AUTO) 69.5 % (43.0-81.0); PLATELET COUNT (AUTO) 390 /CMM (150-450); RED BLOOD CELL COUNT(AUTO) 3.44 MIL/uL (4.5-6.0); WHITE BLOOD COUNT (AUTO) 10.6 K/uL (4.3-11.0)
[2016-12-09 07:03] LABS: CALCIUM, SERUM 8.6 mg/dL (8.5-10.1); POTASSIUM 3.7 mmol/L (3.5-5.1)
[2016-12-09] MEDS: ACETYLCYSTEINE 10% SOLN 400 MG/4 ML VIAL NEB SCH (07:27)
[2016-12-09 08:00] VITALS: BP 113/69
[2016-12-09] MEDS: LACTOBACILLUS RHAMNOSUS GG 1 EACH CAP.SPRINK PO SCH ×2 (08:40→17:17)
[2016-12-09] MEDS: METOCLOPRAMIDE HCL 10 MG/2 ML VIAL IV SCH ×2 (08:40→17:17)
[2016-12-09] MEDS: ASPIRIN 81 MG TAB.CHEW GT SCH (08:40)
[2016-12-09] MEDS: NEOMY SULF/BACITRAC ZN/POLY 15 GM TUBE TP SCH (08:41)
[2016-12-09] MEDS: Z GUARD REMEDY 2 OZ OINT TP SCH ×2 (08:41→17:17)
[2016-12-09] MEDS: HYDROGEL DRESSING 90 GM TUBE TP SCH (08:41)
[2016-12-09] MEDS: HEPARIN SODIUM, PORCINE 5000 UNITS/1 ML VIAL SQ SCH (08:53)
[2016-12-09] MEDS: CEFTRIAXONE 1 G in IV D5W 50 ML IV SCH (11:03)
[2016-12-09 12:00] VITALS: BP 135/81
[2016-12-09] MEDS ORDERED: ALBUTEROL HALF STRENGTH 1.25 MG/3 ML VIAL.NEB NEB PRN (15:00)
[2016-12-09 16:00] VITALS: BP 114/65
[2016-12-09] MEDS ORDERED: VANCOMYCIN 0.75 GM in IV D5W 250 ML IV SCH (18:00)
[2016-12-09 20:00] VITALS: BP 137/76
[2016-12-09] MEDS: ALBUTEROL HALF STRENGTH 1.25 MG/3 ML VIAL.NEB NEB SCH (20:14)
[2016-12-09] MEDS: MICAFUNGIN SODIUM 100 MG in IV NS 0.9% 100 ML IV SCH (20:37)
[2016-12-10] VITALS: BP 126/71
[2016-12-10] MEDS ORDERED: IV NS 0.9% 250 ML IV ONE (00:29)
[2016-12-10] MEDS ORDERED: IV SET PRIMARY PUMP SET 1 EA INFUS.SET MC ONE (00:29)
[2016-12-10] MEDS ORDERED: SECONDARY IV SET 1 EA INFUS.SET MC ONE ×2 (00:30→19:36)
[2016-12-10] MEDS: ALBUTEROL HALF STRENGTH 1.25 MG/3 ML VIAL.NEB NEB SCH ×4 (00:57→20:14)
[2016-12-10 04:00] VITALS: BP 135/76
[2016-12-10] MEDS: BLOOD SUGAR DIAGNOSTIC 1 EACH STRIP IN SCH ×4 (05:32→23:48)
[2016-12-10] MEDS: PANTOPRAZOLE 40 MG VIAL IV SCH (05:32)
[2016-12-10] MEDS: GLYTROL 1,000 ML BAG GT PRN (05:32)
[2016-12-10] MEDS: INSULIN REGULAR, HUMAN 100 UNIT/ML 3 ML VIAL SQ PRN (05:41)
[2016-12-10 06:54] LABS: BASOPHILS % (AUTO) 0.4 % (0.0-2.0); DIFF TOTAL % 100 %; EOSINOPHILS # (AUTO) 0.8 /CMM (0.0-0.7); EOSINOPHILS % (AUTO) 6.5 % (0.0-6.0); HEMATOCRIT 29 % (39-51); LYMPHOCYTES # (AUTO) 2.1 /CMM (0.8-4.8); LYMPHOCYTES % (AUTO) 17.5 % (20.0-44.0); MEAN CORPUSCULAR HEMOGLOBIN 26 PG (26.0-33.0); MEAN CORPUSCULAR HGB CONC 31 g/dl (31.0-36.0); MEAN CORPUSCULAR VOLUME 82 fL (80-96); MONOCYTES # (AUTO) 0.8 /CMM (0.1-1.30); NEUTROPHILS # (AUTO) 8.1 /CMM (1.8-8.9); NEUTROPHILS % (AUTO) 68.6 % (43.0-81.0); PLATELET COUNT (AUTO) 405 /CMM (150-450); WHITE BLOOD COUNT (AUTO) 11.8 K/uL (4.3-11.0)
[2016-12-10 07:16] LABS: CALCIUM, SERUM 9.2 mg/dL (8.5-10.1); POTASSIUM 3.8 mmol/L (3.5-5.1)
[2016-12-10 08:00] VITALS: BP 149/78
[2016-12-10] MEDS: METOCLOPRAMIDE HCL 10 MG/2 ML VIAL IV SCH ×2 (08:50→17:26)
[2016-12-10] MEDS: LACTOBACILLUS RHAMNOSUS GG 1 EACH CAP.SPRINK PO SCH ×2 (08:50→17:26)
[2016-12-10] MEDS: ASPIRIN 81 MG TAB.CHEW GT SCH (08:50)
[2016-12-10] MEDS: HYDROGEL DRESSING 90 GM TUBE TP SCH (08:51)
[2016-12-10] MEDS: NEOMY SULF/BACITRAC ZN/POLY 15 GM TUBE TP SCH (08:51)
[2016-12-10] MEDS: Z GUARD REMEDY 2 OZ OINT TP SCH ×2 (10:00→17:27)
[2016-12-10] MEDS: CEFTRIAXONE 1 G in IV D5W 50 ML IV SCH (10:06)
[2016-12-10] MEDS ORDERED: VANCOMYCIN 0.75 GM in IV D5W 250 ML IV SCH (11:00)
[2016-12-10 12:00] VITALS: BP 127/73
[2016-12-10 12:03] LABS: KETONES,URINE NEGATIVE (NEGATIVE); LEUKOCYTE ESTERASE ,URINE NEGATIVE (NEGATIVE)
[2016-12-10 12:06] LABS: ADD UA MICROSCOPIC YES
[2016-12-10 12:35] LABS: ADD URINE CULTURE NO; WBC,URINE 0-2 /HPF (0-3)
[2016-12-10 16:00] VITALS: BP 148/73
[2016-12-10 20:00] VITALS: BP 150/91
[2016-12-10] MEDS: MICAFUNGIN SODIUM 100 MG in IV NS 0.9% 100 ML IV SCH (20:08)
[2016-12-10] MEDS: LINEZOLID 600 MG TABLET PO SCH (21:02)
[2016-12-10] MEDS: COLISTIMETHATE SODIUM 100 MG in IV NS 0.9% 50 ML IV SCH (21:16)
[2016-12-11] VITALS: BP 141/96
[2016-12-11] MEDS: ALBUTEROL HALF STRENGTH 1.25 MG/3 ML VIAL.NEB NEB SCH ×4 (01:56→20:10)
[2016-12-11 04:00] VITALS: BP 135/90
[2016-12-11] MEDS: PANTOPRAZOLE 40 MG VIAL IV SCH (04:59)
[2016-12-11] MEDS: BLOOD SUGAR DIAGNOSTIC 1 EACH STRIP IN SCH ×3 (05:27→17:36)
[2016-12-11 07:00] LABS: BASOPHILS # (AUTO) 0.1 /CMM (0.0-0.2); DIFF TOTAL % 100 %; EOSINOPHILS # (AUTO) 0.9 /CMM (0.0-0.7); EOSINOPHILS % (AUTO) 6.2 % (0.0-6.0); HEMATOCRIT 35 % (39-51); HEMOGLOBIN 10.8 g/dL (13.5-17.5); LYMPHOCYTES # (AUTO) 1.9 /CMM (0.8-4.8); MEAN CORPUSCULAR HEMOGLOBIN 25 PG (26.0-33.0); MEAN CORPUSCULAR HGB CONC 31 g/dl (31.0-36.0); MEAN CORPUSCULAR VOLUME 82 fL (80-96); MONOCYTES # (AUTO) 1.1 /CMM (0.1-1.30); MONOCYTES % (AUTO) 7.7 % (2.0-12.0); NEUTROPHILS # (AUTO) 9.8 /CMM (1.8-8.9); NEUTROPHILS % (AUTO) 71.1 % (43.0-81.0); PLATELET COUNT (AUTO) 386 /CMM (150-450); RED BLOOD CELL COUNT(AUTO) 4.28 MIL/uL (4.5-6.0); WHITE BLOOD COUNT (AUTO) 13.9 K/uL (4.3-11.0)
[2016-12-11 07:03] LABS: CALCIUM, SERUM 9.3 mg/dL (8.5-10.1); CREATININE 1.1 mg/dL (0.6-1.3); POTASSIUM 4.5 mmol/L (3.5-5.1)
[2016-12-11 08:00] VITALS: BP 154/85
[2016-12-11] MEDS: METOCLOPRAMIDE HCL 10 MG/2 ML VIAL IV SCH ×2 (09:20→16:53)
[2016-12-11] MEDS: ASPIRIN 81 MG TAB.CHEW GT SCH (09:20)
[2016-12-11] MEDS: HYDROGEL DRESSING 90 GM TUBE TP SCH (09:20)
[2016-12-11] MEDS: LACTOBACILLUS RHAMNOSUS GG 1 EACH CAP.SPRINK PO SCH ×2 (09:20→16:53)
[2016-12-11] MEDS: Z GUARD REMEDY 2 OZ OINT TP SCH ×2 (09:20→16:53)
[2016-12-11] MEDS: LINEZOLID 600 MG TABLET PO SCH ×2 (09:20→22:27)
[2016-12-11] MEDS: NEOMY SULF/BACITRAC ZN/POLY 15 GM TUBE TP SCH (09:20)
[2016-12-11] MEDS: CEFTRIAXONE 2 G in IV D5W 50 ML IV SCH (09:20)
[2016-12-11] MEDS: COLISTIMETHATE SODIUM 100 MG in IV NS 0.9% 50 ML IV SCH ×2 (09:21→20:49)
[2016-12-11 12:00] VITALS: BP 131/97
[2016-12-11] MEDS: INSULIN REGULAR, HUMAN 100 UNIT/ML 3 ML VIAL SQ PRN ×2 (12:26→17:45)
[2016-12-11 16:08] VITALS: BP 132/91
[2016-12-11 20:00] VITALS: BP 148/79
[2016-12-11] MEDS: MICAFUNGIN SODIUM 100 MG in IV NS 0.9% 100 ML IV SCH (20:25)
[2016-12-11] MEDS ORDERED: SECONDARY IV SET 1 EA INFUS.SET MC ONE (20:46)
[2016-12-11] MEDS: GLYTROL 1,000 ML BAG GT PRN (20:51)
[2016-12-11] MEDS ORDERED: IV NS 0.9% 250 ML IV ONE (22:22)
[2016-12-11] MEDS ORDERED: IV NS 0.9% 250 ML IV PRN (22:30)
[2016-12-12] VITALS: BP 151/90
[2016-12-12] MEDS: BLOOD SUGAR DIAGNOSTIC 1 EACH STRIP IN SCH ×4 (00:33→17:37)
[2016-12-12] MEDS: INSULIN REGULAR, HUMAN 100 UNIT/ML 3 ML VIAL SQ PRN ×4 (00:37→17:55)
[2016-12-12] MEDS: ALBUTEROL HALF STRENGTH 1.25 MG/3 ML VIAL.NEB NEB SCH ×4 (02:10→20:20)
[2016-12-12 04:00] VITALS: BP 146/76
[2016-12-12] MEDS: PANTOPRAZOLE 40 MG VIAL IV SCH (05:45)
[2016-12-12 06:47] LABS: BASOPHILS # (AUTO) 0.1 /CMM (0.0-0.2); BASOPHILS % (AUTO) 0.6 % (0.0-2.0); DIFF TOTAL % 100 %; EOSINOPHILS % (AUTO) 6.6 % (0.0-6.0); HEMATOCRIT 30 % (39-51); HEMOGLOBIN 9.4 g/dL (13.5-17.5); LYMPHOCYTES # (AUTO) 2.2 /CMM (0.8-4.8); LYMPHOCYTES % (AUTO) 15.1 % (20.0-44.0); MEAN CORPUSCULAR HEMOGLOBIN 26 PG (26.0-33.0); MEAN CORPUSCULAR HGB CONC 31 g/dl (31.0-36.0); MEAN CORPUSCULAR VOLUME 82 fL (80-96); MONOCYTES % (AUTO) 6.7 % (2.0-12.0); NEUTROPHILS # (AUTO) 10.3 /CMM (1.8-8.9); PLATELET COUNT (AUTO) 412 /CMM (150-450); RED BLOOD CELL COUNT(AUTO) 3.63 MIL/uL (4.5-6.0); WHITE BLOOD COUNT (AUTO) 14.6 K/uL (4.3-11.0)
[2016-12-12 07:01] LABS: CREATININE 1.2 mg/dL (0.6-1.3); POTASSIUM 3.8 mmol/L (3.5-5.1)
[2016-12-12 08:00] VITALS: BP 134/86
[2016-12-12] MEDS: ASPIRIN 81 MG TAB.CHEW GT SCH (09:34)
[2016-12-12] MEDS: LACTOBACILLUS RHAMNOSUS GG 1 EACH CAP.SPRINK PO SCH ×2 (09:34→17:31)
[2016-12-12] MEDS: LINEZOLID 600 MG TABLET PO SCH ×2 (09:34→21:39)
[2016-12-12] MEDS: METOCLOPRAMIDE HCL 10 MG/2 ML VIAL IV SCH ×2 (09:35→17:31)
[2016-12-12] MEDS: COLISTIMETHATE SODIUM 100 MG in IV NS 0.9% 50 ML IV SCH ×2 (09:35→21:39)
[2016-12-12] MEDS: Z GUARD REMEDY 2 OZ OINT TP SCH ×2 (09:36→17:32)
[2016-12-12] MEDS: HYDROGEL DRESSING 90 GM TUBE TP SCH (09:37)
[2016-12-12] MEDS: NEOMY SULF/BACITRAC ZN/POLY 15 GM TUBE TP SCH (09:37)
[2016-12-12] MEDS ORDERED: SECONDARY IV SET 1 EA INFUS.SET MC ONE (09:56)
[2016-12-12] MEDS: CEFTRIAXONE 2 G in IV D5W 50 ML IV SCH (10:39)
[2016-12-12 12:00] VITALS: BP 142/94
[2016-12-12 16:00] VITALS: BP 130/79
[2016-12-12] MEDS: GLYTROL 1,000 ML BAG GT PRN (17:32)
[2016-12-12] MEDS: MICAFUNGIN SODIUM 100 MG in IV NS 0.9% 100 ML IV SCH (19:55)
[2016-12-12 20:00] VITALS: BP 130/77
[2016-12-13] VITALS: BP 133/64
[2016-12-13] MEDS: BLOOD SUGAR DIAGNOSTIC 1 EACH STRIP IN SCH ×3 (00:47→12:43)
[2016-12-13] MEDS: INSULIN REGULAR, HUMAN 100 UNIT/ML 3 ML VIAL SQ PRN ×3 (00:51→12:42)
[2016-12-13] MEDS: ALBUTEROL HALF STRENGTH 1.25 MG/3 ML VIAL.NEB NEB SCH ×3 (01:35→13:14)
[2016-12-13] MEDS: PANTOPRAZOLE 40 MG VIAL IV SCH (05:46)
[2016-12-13 06:00] VITALS: BP 135/71
[2016-12-13] MEDS: GLYTROL 1,000 ML BAG GT PRN (06:48)
[2016-12-13 07:18] LABS: BASOPHILS # (AUTO) 0.1 /CMM (0.0-0.2); BASOPHILS % (AUTO) 0.5 % (0.0-2.0); DIFF TOTAL % 100 %; EOSINOPHILS % (AUTO) 6.2 % (0.0-6.0); HEMATOCRIT 32 % (39-51); HEMOGLOBIN 10.1 g/dL (13.5-17.5); LYMPHOCYTES # (AUTO) 2.3 /CMM (0.8-4.8); MEAN CORPUSCULAR HEMOGLOBIN 26 PG (26.0-33.0); MEAN CORPUSCULAR HGB CONC 31 g/dl (31.0-36.0); MEAN CORPUSCULAR VOLUME 83 fL (80-96); MONOCYTES # (AUTO) 1.3 /CMM (0.1-1.30); MONOCYTES % (AUTO) 7.9 % (2.0-12.0); NEUTROPHILS # (AUTO) 11.6 /CMM (1.8-8.9); NEUTROPHILS % (AUTO) 71.4 % (43.0-81.0); PLATELET COUNT (AUTO) 398 /CMM (150-450); RED BLOOD CELL COUNT(AUTO) 3.92 MIL/uL (4.5-6.0); WHITE BLOOD COUNT (AUTO) 16.2 K/uL (4.3-11.0)
[2016-12-13 07:25] LABS: CALCIUM, SERUM 9.4 mg/dL (8.5-10.1); CREATININE 1.9 mg/dL (0.6-1.3); POTASSIUM 3.8 mmol/L (3.5-5.1)
[2016-12-13 08:00] VITALS: BP 126/70
[2016-12-13] MEDS: Z GUARD REMEDY 2 OZ OINT TP SCH ×2 (08:02→17:22)
[2016-12-13] MEDS: NEOMY SULF/BACITRAC ZN/POLY 15 GM TUBE TP SCH (08:02)
[2016-12-13] MEDS: HYDROGEL DRESSING 90 GM TUBE TP SCH (08:02)
[2016-12-13] MEDS: LACTOBACILLUS RHAMNOSUS GG 1 EACH CAP.SPRINK PO SCH ×2 (08:04→17:22)
[2016-12-13] MEDS: LINEZOLID 600 MG TABLET PO SCH (08:04)
[2016-12-13] MEDS: ASPIRIN 81 MG TAB.CHEW GT SCH (08:05)
[2016-12-13] MEDS: METOCLOPRAMIDE HCL 10 MG/2 ML VIAL IV SCH ×2 (08:05→17:22)
[2016-12-13] MEDS: COLISTIMETHATE SODIUM 100 MG in IV NS 0.9% 50 ML IV SCH (09:07)
[2016-12-13 09:37] LABS: ANISOCYTOSIS 2+; EOSINOPHILS % (MANUAL) 8 % (0-4); HYPOCHROMASIA 2+; LYMPHOCYTES % (MANUAL) 10 % (16-48); PLATELET ESTIMATE INCREASED
[2016-12-13] MEDS ORDERED: CEFTRIAXONE 2 G in IV D5W 100 ML IV SCH (10:00)
[2016-12-13 12:00] VITALS: BP 127/77
[2016-12-13 13:06] LABS: CREATININE, URINE 23.9 MG/DL (30.0-125.0); URINE TOTAL PROTEIN 195.1 mg/dL (0-11.9)
[2016-12-13 13:24] LABS: KETONES,URINE NEGATIVE (NEGATIVE); LEUKOCYTE ESTERASE ,URINE TRACE (NEGATIVE)
[2016-12-13 13:25] LABS: ADD UA MICROSCOPIC YES
[2016-12-13 14:00] VITALS: BP 139/85
[2016-12-13 14:07] LABS: RBC,URINE 21-50 /HPF (0-2)
[2016-12-13 14:08] LABS: ADD URINE CULTURE NO; MUCUS,URINE Many /LPF (None Seen)
[2016-12-13 16:00] VITALS: BP 120/70
[2016-12-13] MEDS ORDERED: PIPERACILLIN /TAZOBACTAM 2.25 G in IV D5W 50 ML IV SCH (19:00)
== END 2016-12-13 19:20 | DRG 870 ==
LOC: ER 00:45 → TELE 02:47 → ICU 03:03 → TELE-TD 12-06 12:59 → TELE1 12-07 07:38
PROVIDERS: ADMIT Nurse Practitioner Acute Care; ATTEND Nurse Practitioner Acute Care
PROC: 5A1955Z Respiratory Ventilation, Greater than 96 Consecutive Hours (ICD-10-PCS; principal; 2016-12-02)
PROC: 02HV33Z Insertion of Infusion Device into Superior Vena Cava, Percutaneous Approach (ICD-10-PCS; 2016-12-03)
PROC: B548ZZA Ultrasonography of Superior Vena Cava, Guidance (ICD-10-PCS; 2016-12-03)
PROC: 05H633Z Insertion of Infusion Device into Left Subclavian Vein, Percutaneous Approach (ICD-10-PCS; 2016-12-10)
DX: A41.9 Sepsis, unspecified organism (principal); R65.21 Severe sepsis with septic shock; E43 Unspecified severe protein-calorie malnutrition; J96.21 Acute and chronic respiratory failure with hypoxia; J18.9 Pneumonia, unspecified organism; I21.4 Non-ST elevation (NSTEMI) myocardial infarction; N17.0 Acute kidney failure with tubular necrosis; J96.22 Acute and chronic respiratory failure with hypercapnia; E87.2 Acidosis; N39.0 Urinary tract infection, site not specified; E66.2 Morbid (severe) obesity with alveolar hypoventilation; I50.22 Chronic systolic (congestive) heart failure; J44.0 Chronic obstructive pulmonary disease with (acute) lower respiratory infection; J44.1 Chronic obstructive pulmonary disease with (acute) exacerbation; Z99.11 Dependence on respirator [ventilator] status; D64.9 Anemia, unspecified; F03.90 Unspecified dementia, unspecified severity, without behavioral disturbance, psychotic disturbance, mood disturbance, and anxiety; E11.22 Type 2 diabetes mellitus with diabetic chronic kidney disease; I12.9 Hypertensive chronic kidney disease with stage 1 through stage 4 chronic kidney disease, or unspecified chronic kidney disease; N18.9 Chronic kidney disease, unspecified; Z93.0 Tracheostomy status; D47.3 Essential (hemorrhagic) thrombocythemia; Z87.11 Personal history of peptic ulcer disease; K27.9 Peptic ulcer, site unspecified, unspecified as acute or chronic, without hemorrhage or perforation; R13.10 Dysphagia, unspecified; Z68.31 Body mass index [BMI] 31.0-31.9, adult; B96.89 Other specified bacterial agents as the cause of diseases classified elsewhere; E78.5 Hyperlipidemia, unspecified; E87.5 Hyperkalemia; E87.6 Hypokalemia; I25.2 Old myocardial infarction; K21.9 Gastro-esophageal reflux disease without esophagitis; K29.70 Gastritis, unspecified, without bleeding; N28.1 Cyst of kidney, acquired; N48.89 Other specified disorders of penis; Z87.440 Personal history of urinary (tract) infections
CPT/HCPCS: 31720; 36415; 36600; 71010-TC; 76770-TC; 80048-TC; 80076-TC; 80202-TC; 81000-TC; 82040-TC; 82570-TC; 82803-TC; 82962-TC; 83605-TC; 83735-TC; 83880; 84100-TC; 84155-TC; 84300-TC; 84484-TC; 85025-TC; 85730-TC; 87040-TC; 87070-TC; 87081-TC; 87086-TC; 87186-TC; 87400; 94002-TC; 94003-TC; 94640-TC; 94664-TC; 94799-TC; A4216; A4217; A4606; A6248; A6253; A6402; A6403; C1751; C9113; J0696; J0770; J1644; J1815; J1956; J2020; J2248; J2543; J2765; J3370; J3490; J7030; J7050; J7060; Z7610

== ENCOUNTER 2016-12-17 22:40 | Inpatient (IN) | payer MEDICARE, OTHER ==
[~2016-12-17] VITALS: Ht 177.8 cm; Wt 103.0 kg
[~2016-12-17 22:40] MED LIST changes: -ALBU1.257 IH; -ASCO500S2 GT; -CEFT1VIA15 IV; -IPRA0.2S9 IH; -NORM10004 IV
[2016-12-17 23:41] LABS: CALCIUM, SERUM 8.7 mg/dL (8.5-10.1); CREATININE 6.7 mg/dL (0.6-1.3)
[2016-12-17 23:48] LABS: BASOPHILS # (AUTO) 0.1 /CMM (0.0-0.2); BASOPHILS % (AUTO) 0.3 % (0.0-2.0); DIFF TOTAL % 100 %; EOSINOPHILS # (AUTO) 0.4 /CMM (0.0-0.7); EOSINOPHILS % (AUTO) 1.9 % (0.0-6.0); HEMATOCRIT 32 % (39-51); HEMOGLOBIN 9.9 g/dL (13.5-17.5); LYMPHOCYTES # (AUTO) 1.4 /CMM (0.8-4.8); LYMPHOCYTES % (AUTO) 7.6 % (20.0-44.0); MEAN CORPUSCULAR HEMOGLOBIN 25 PG (26.0-33.0); MEAN CORPUSCULAR HGB CONC 31 g/dl (31.0-36.0); MEAN CORPUSCULAR VOLUME 81 fL (80-96); MONOCYTES # (AUTO) 0.7 /CMM (0.1-1.30); MONOCYTES % (AUTO) 3.8 % (2.0-12.0); NEUTROPHILS # (AUTO) 16.3 /CMM (1.8-8.9); NEUTROPHILS % (AUTO) 86.4 % (43.0-81.0); PLATELET COUNT (AUTO) 406 /CMM (150-450); RED BLOOD CELL COUNT(AUTO) 3.93 MIL/uL (4.5-6.0); WHITE BLOOD COUNT (AUTO) 18.9 K/uL (4.3-11.0)
[2016-12-17 23:55] LABS: INR 1.06 (0.87-1.13); PROTHROMBIN TIME 11.5 SECS (9.5-12.7)
[2016-12-18] VITALS (57 sets, daily range): BP systolic 62–156; BP diastolic 33–107
[2016-12-18] MEDS ORDERED: LEVOFLOXACIN 750 MG /D5W 150ML 150 ML IV ONE ×2 (00:30→02:36)
[2016-12-18] MEDS ORDERED: PIPERACILLIN /TAZOBACTAM 3.375 G in IV D5W 50 ML IV ONE (00:30)
[2016-12-18] MEDS ORDERED: IV NS 0.9% 1,000 ML BAG IV ONE ×3 (00:30→11:30)
[2016-12-18] MEDS ORDERED: VANCOMYCIN 1 GM in IV D5W 250 ML IV ONE (00:30)
[2016-12-18] MEDS ORDERED: IV NS 0.9% 1,000 ML ONE ×4 (00:31→04:21)
[2016-12-18] MEDS ORDERED: IV SET PRIMARY 1 EA INFUS.SET MC ONE ×4 (00:31→02:36)
[2016-12-18 00:51] LABS: LACTIC ACID 3.8 mmol/L (0.4-2.0)
[2016-12-18] MEDS ORDERED: PIPERACILLIN /TAZOBACTAM 3.375 G VIAL IV ONE ×2 (01:00→04:22)
[2016-12-18] MEDS ORDERED: IV D5W 50 ML IV ONE ×2 (01:00→04:22)
[2016-12-18 01:30] LABS: *LACTIC ACID REFLEX FLAG YES
[2016-12-18] MEDS ORDERED: IV SET PRIMARY PUMP SET 1 EA INFUS.SET MC ONE ×3 (01:30→11:40)
[2016-12-18] MEDS ORDERED: IV D5W 250 ML IV ONE (01:30)
[2016-12-18] MEDS ORDERED: VANCOMYCIN 1 GM VIAL ONE (01:30)
[2016-12-18 01:31] LABS: KETONES,URINE NEGATIVE (NEGATIVE); LEUKOCYTE ESTERASE ,URINE 3+ (NEGATIVE); PH,URINE 5.5 (5.0-8.0)
[2016-12-18 01:35] LABS: ADD UA MICROSCOPIC YES
[2016-12-18 01:37] LABS: INR 1.18 (0.87-1.13); PROTHROMBIN TIME 12.8 SECS (9.5-12.7)
[2016-12-18 01:40] LABS: ADD URINE CULTURE YES; RBC,URINE TOO NUMEROUS TO COUN /HPF (0-2); WBC,URINE TOO NUMEROUS TO COUN /HPF (0-3)
[2016-12-18 01:41] LABS: URINALYSIS COMMENT MANY WBC CLUMPING
[2016-12-18 02:49] LABS: CALCIUM, SERUM 7.8 mg/dL (8.5-10.1); CREATININE 6.6 mg/dL (0.6-1.3); POTASSIUM 5.6 mmol/L (3.5-5.1)
[2016-12-18 03:09] LABS: BILIRUBIN,DIRECT 0.1 mg/dL (0.0-0.2); BILIRUBIN,TOTAL 0.3 mg/dL (0.2-1.0)
[2016-12-18] MEDS ORDERED: SECONDARY IV SET 1 EA INFUS.SET MC ONE ×2 (03:37→04:21)
[2016-12-18] MEDS ORDERED: BISACODYL SUPP (10 MG) 10 MG/SUPP.RECT SUPP.RECT RC PRN (04:00)
[2016-12-18] MEDS ORDERED: NA PHOS,M-B/NA PHOS,DI-BA 1 EA ENEMA RC PRN (04:00)
[2016-12-18] MEDS ORDERED: ONDANSETRON HCL/PF 4 MG/2 ML VIAL IVP PRN (04:00)
[2016-12-18] MEDS ORDERED: Z GUARD REMEDY 2 OZ OINT TP PRN (04:00)
[2016-12-18] MEDS ORDERED: MAGNESIUM HYDROXIDE 30 ML UDC GT PRN (04:00)
[2016-12-18] MEDS ORDERED: ACETAMINOPHEN 325 MG TABLET PO PRN (04:00)
[2016-12-18] MEDS ORDERED: INSULIN REGULAR, HUMAN 100 UNIT/ML 3 ML VIAL SQ PRN (04:00)
[2016-12-18] MEDS ORDERED: DEXTROSE 50%-WATER 50 ML DISP.SYRIN IV PRN (04:00)
[2016-12-18] MEDS ORDERED: MAG HYDROX/AL HYDROX/SIMETH 30 ML UDC GT PRN (04:00)
[2016-12-18] MEDS ORDERED: GLYTROL 1,000 ML BAG GT SCH ×2 (04:00→08:28)
[2016-12-18] MEDS ORDERED: PANTOPRAZOLE 40 MG/PACK PACK ONE (04:23)
[2016-12-18] MEDS ORDERED: LEVOFLOXACIN 500 MG /D5W 100ML 500 MG in PREMIX 1 EA IV SCH (04:30)
[2016-12-18] MEDS: IV NS 0.9% 1,000 ML IV PRN ×2 (04:46→17:47)
[2016-12-18] MEDS: PANTOPRAZOLE 40 MG/PACK PACK GT SCH (05:04)
[2016-12-18] MEDS: BLOOD SUGAR DIAGNOSTIC 1 EACH STRIP IN SCH ×3 (05:20→18:19)
[2016-12-18] MEDS ORDERED: PIPERACILLIN /TAZOBACTAM 3.375 G in IV D5W 50 ML IV SCH (06:00)
[2016-12-18] MEDS: DOCUSATE SODIUM LIQ 100 MG/10 ML UDC GT SCH ×2 (08:59→17:00)
[2016-12-18] MEDS: LEVETIRACETAM SOL (5 ML) 100 MG/ML UDC GT SCH ×2 (08:59→21:25)
[2016-12-18] MEDS: AMLODIPINE BESYLATE 10 MG TABLET GT SCH (09:00)
[2016-12-18] MEDS ORDERED: LISINOPRIL (10MG) 10 MG TABLET GT SCH (09:00)
[2016-12-18] MEDS: ACIDOPHILUS/BULGARICUS 1 EACH TAB.CHEW GT SCH (09:00)
[2016-12-18] MEDS ORDERED: FEE PK DOSING 1 MIN EA MC ONE (09:41)
[2016-12-18 10:27] LABS: ABG HCO3 17.3 mmol/L; ABG PCO2 26.7 mmHg (35.0-45.0); ABG PH 7.429 (7.350-7.450); ABG PO2 60.5 mmHg (75.0-100.0); ABG TOTAL HEMOGLOBIN 9.3 G/dL (13.5-18.0); ALLEN TEST Pass; O2Hb 88.1 % (94.0-97.0)
[2016-12-18 11:16] LABS: CREATINE KINASE MB 1.6 ng/mL (0-3.6)
[2016-12-18] MEDS: NOREPINEPHRINE 16 MG in IV D5W 500 ML IV PRN (11:54)
[2016-12-18 11:56] LABS: BASOPHILS % (AUTO) 0.3 % (0.0-2.0); DIFF TOTAL % 100 %; EOSINOPHILS # (AUTO) 0.1 /CMM (0.0-0.7); EOSINOPHILS % (AUTO) 0.7 % (0.0-6.0); HEMATOCRIT 25 % (39-51); HEMOGLOBIN 8.1 g/dL (13.5-17.5); LYMPHOCYTES # (AUTO) 0.6 /CMM (0.8-4.8); LYMPHOCYTES % (AUTO) 3.4 % (20.0-44.0); MEAN CORPUSCULAR HEMOGLOBIN 26 PG (26.0-33.0); MEAN CORPUSCULAR HGB CONC 32 g/dl (31.0-36.0); MEAN CORPUSCULAR VOLUME 81 fL (80-96); MONOCYTES # (AUTO) 0.4 /CMM (0.1-1.30); MONOCYTES % (AUTO) 2.2 % (2.0-12.0); NEUTROPHILS # (AUTO) 17.3 /CMM (1.8-8.9); NEUTROPHILS % (AUTO) 93.4 % (43.0-81.0); PLATELET COUNT (AUTO) 348 /CMM (150-450); RED BLOOD CELL COUNT(AUTO) 3.16 MIL/uL (4.5-6.0); WHITE BLOOD COUNT (AUTO) 18.5 K/uL (4.3-11.0)
[2016-12-18 12:09] LABS: CALCIUM, SERUM 7.6 mg/dL (8.5-10.1); CREATININE 6.5 mg/dL (0.6-1.3); POTASSIUM 5.8 mmol/L (3.5-5.1)
[2016-12-18 12:15] LABS: ALBUMIN 1.6 g/dL (3.4-5.0); BILIRUBIN,TOTAL 0.2 mg/dL (0.2-1.0); TOTAL PROTEIN, SERUM 6.6 g/dL (6.4-8.2)
[2016-12-18] MEDS: PIPERACILLIN /TAZOBACTAM 2.25 G in IV D5W 50 ML IV SCH ×2 (13:26→21:25)
[2016-12-18] MEDS ORDERED: ACETAMINOPHEN 650 MG/SUPP.RECT RC PRN (17:30)
[2016-12-19] VITALS (82 sets, daily range): BP systolic 67–128; BP diastolic 37–83
[2016-12-19] MEDS ORDERED: FOSFOMYCIN TROMETHAMINE 3 G/PKT PACKET PO ONE
[2016-12-19] MEDS: BLOOD SUGAR DIAGNOSTIC 1 EACH STRIP IN SCH ×4 (00:31→17:37)
[2016-12-19 04:54] LABS: DIFF TOTAL % 100 %; EOSINOPHILS # (AUTO) 0.8 /CMM (0.0-0.7); EOSINOPHILS % (AUTO) 3.8 % (0.0-6.0); HEMATOCRIT 25 % (39-51); HEMOGLOBIN 7.8 g/dL (13.5-17.5); LYMPHOCYTES # (AUTO) 0.9 /CMM (0.8-4.8); LYMPHOCYTES % (AUTO) 4.2 % (20.0-44.0); MEAN CORPUSCULAR HEMOGLOBIN 26 PG (26.0-33.0); MEAN CORPUSCULAR HGB CONC 32 g/dl (31.0-36.0); MEAN CORPUSCULAR VOLUME 81 fL (80-96); MONOCYTES # (AUTO) 0.6 /CMM (0.1-1.30); MONOCYTES % (AUTO) 2.8 % (2.0-12.0); NEUTROPHILS # (AUTO) 19.9 /CMM (1.8-8.9); NEUTROPHILS % (AUTO) 89.2 % (43.0-81.0); PLATELET COUNT (AUTO) 318 /CMM (150-450); RED BLOOD CELL COUNT(AUTO) 3.02 MIL/uL (4.5-6.0); WHITE BLOOD COUNT (AUTO) 22.3 K/uL (4.3-11.0)
[2016-12-19] MEDS: PANTOPRAZOLE 40 MG/PACK PACK GT SCH (05:06)
[2016-12-19] MEDS: IV NS 0.9% 1,000 ML IV PRN ×2 (05:06→15:34)
[2016-12-19] MEDS: PIPERACILLIN /TAZOBACTAM 2.25 G in IV D5W 50 ML IV SCH ×3 (05:07→20:15)
[2016-12-19 05:10] LABS: CALCIUM, SERUM 7.7 mg/dL (8.5-10.1); CREATININE 5.9 mg/dL (0.6-1.3); PHOSPHORUS 5.1 mg/dL (2.5-4.9); POTASSIUM 4.5 mmol/L (3.5-5.1)
[2016-12-19 05:15] LABS: THYROID STIMULATING HORMONE 3.382 uIU/mL (0.358-3.74)
[2016-12-19 05:33] LABS: EOSINOPHILS % (MANUAL) 4 % (0-4); LYMPHOCYTES % (MANUAL) 5 % (16-48)
[2016-12-19 05:34] LABS: ANISOCYTOSIS 2+; HYPOCHROMASIA 3+; PLATELET ESTIMATE ADEQUATE
[2016-12-19] MEDS ORDERED: IV NS 0.9% 500 ML IV ONE (08:40)
[2016-12-19] MEDS ORDERED: DEXTROSE 50%-WATER 50 ML DISP.SYRIN IV PRN (09:00)
[2016-12-19] MEDS: AMLODIPINE BESYLATE 10 MG TABLET GT SCH (09:00)
[2016-12-19] MEDS: DOCUSATE SODIUM LIQ 100 MG/10 ML UDC GT SCH ×2 (09:00→17:00)
[2016-12-19] MEDS: ACIDOPHILUS/BULGARICUS 1 EACH TAB.CHEW GT SCH (09:19)
[2016-12-19] MEDS: LEVETIRACETAM SOL (5 ML) 100 MG/ML UDC GT SCH ×2 (09:19→20:15)
[2016-12-19] MEDS: GLYTROL 1,000 ML BAG GT PRN (10:01)
[2016-12-19] MEDS: NOREPINEPHRINE 16 MG in IV D5W 500 ML IV PRN (18:40)
[2016-12-19] MEDS ORDERED: VANCOMYCIN 1 GM in IV D5W 250 ML IV ONE (20:00)
[2016-12-20] VITALS (51 sets, daily range): BP systolic 93–141; BP diastolic 44–88
[2016-12-20] MEDS: BLOOD SUGAR DIAGNOSTIC 1 EACH STRIP IN SCH ×4 (00:59→17:05)
[2016-12-20] MEDS: INSULIN REGULAR, HUMAN 100 UNIT/ML 3 ML VIAL SQ PRN (01:08)
[2016-12-20] MEDS: IV NS 0.9% 1,000 ML IV PRN (02:56)
[2016-12-20 04:53] LABS: BASOPHILS % (AUTO) 0.1 % (0.0-2.0); DIFF TOTAL % 100 %; EOSINOPHILS # (AUTO) 1.3 /CMM (0.0-0.7); EOSINOPHILS % (AUTO) 10.2 % (0.0-6.0); HEMATOCRIT 23 % (39-51); HEMOGLOBIN 7.3 g/dL (13.5-17.5); LYMPHOCYTES % (AUTO) 7.8 % (20.0-44.0); MEAN CORPUSCULAR HEMOGLOBIN 26 PG (26.0-33.0); MEAN CORPUSCULAR HGB CONC 31 g/dl (31.0-36.0); MEAN CORPUSCULAR VOLUME 82 fL (80-96); MONOCYTES # (AUTO) 0.6 /CMM (0.1-1.30); MONOCYTES % (AUTO) 4.9 % (2.0-12.0); NEUTROPHILS # (AUTO) 9.6 /CMM (1.8-8.9); PLATELET COUNT (AUTO) 292 /CMM (150-450); RED BLOOD CELL COUNT(AUTO) 2.86 MIL/uL (4.5-6.0); WHITE BLOOD COUNT (AUTO) 12.5 K/uL (4.3-11.0)
[2016-12-20] MEDS: PANTOPRAZOLE 40 MG/PACK PACK GT SCH (05:02)
[2016-12-20] MEDS: LEVOFLOXACIN 500 MG /D5W 100ML 500 MG in PREMIX 1 EA IV SCH (05:02)
[2016-12-20] MEDS: PIPERACILLIN /TAZOBACTAM 2.25 G in IV D5W 50 ML IV SCH ×2 (05:02→12:38)
[2016-12-20 05:06] LABS: ALBUMIN 1.5 g/dL (3.4-5.0); BILIRUBIN,TOTAL 0.2 mg/dL (0.2-1.0); CALCIUM, SERUM 7.8 mg/dL (8.5-10.1); CREATININE 5.4 mg/dL (0.6-1.3); INDIRECT BILIRUBIN 0.2 mg/dL (0.0-1.1); PHOSPHORUS 5.5 mg/dL (2.5-4.9); POTASSIUM 3.5 mmol/L (3.5-5.1); TOTAL PROTEIN, SERUM 6.4 g/dL (6.4-8.2)
[2016-12-20 05:27] LABS: ANISOCYTOSIS 2+; HYPOCHROMASIA 1+
[2016-12-20] MEDS: ACIDOPHILUS/BULGARICUS 1 EACH TAB.CHEW GT SCH (08:02)
[2016-12-20] MEDS: LEVETIRACETAM SOL (5 ML) 100 MG/ML UDC GT SCH ×2 (08:02→20:37)
[2016-12-20] MEDS: DOCUSATE SODIUM LIQ 100 MG/10 ML UDC GT SCH ×2 (08:03→16:06)
[2016-12-20] MEDS: AMLODIPINE BESYLATE 10 MG TABLET GT SCH (08:03)
[2016-12-20] MEDS ORDERED: IV NS 0.9% 1,000 ML IV PRN (09:18)
[2016-12-20] MEDS ORDERED: IV SET PRIMARY PUMP SET 1 EA INFUS.SET MC ONE ×2 (10:30→21:25)
[2016-12-20] MEDS ORDERED: METRONIDAZOLE 500 MG TABLET PO SCH (10:30)
[2016-12-20] MEDS: ALBUMIN 25% 25 GM in PREMIX 1 EA IV SCH ×2 (10:38→20:38)
[2016-12-20] MEDS: FUROSEMIDE 40 MG/4 ML VIAL IV SCH ×2 (11:23→16:10)
[2016-12-20] MEDS: VANCOMYCIN HCL 125 MG/2.5 ML ORAL.SUSP PO SCH ×3 (12:38→20:38)
[2016-12-20] MEDS ORDERED: BLOOD IV SET 1 EA INFUS.SET MC ONE (15:04)
[2016-12-20] MEDS ORDERED: IV NS 0.9% 250 ML IV ONE (15:05)
[2016-12-20] MEDS: GLYTROL 1,000 ML BAG GT PRN (15:12)
[2016-12-20] MEDS: METRONIDAZOLE 500 MG TABLET PO SCH (19:15)
[2016-12-20] MEDS: MICAFUNGIN SODIUM 100 MG in IV NS 0.9% 100 ML IV SCH (19:38)
[2016-12-20] MEDS: LINEZOLID 600 MG TABLET PO SCH (20:37)
[2016-12-21] VITALS (31 sets, daily range): BP systolic 98–143; BP diastolic 59–120
[2016-12-21] MEDS: BLOOD SUGAR DIAGNOSTIC 1 EACH STRIP IN SCH ×4 (00:51→17:45)
[2016-12-21] MEDS: INSULIN REGULAR, HUMAN 100 UNIT/ML 3 ML VIAL SQ PRN ×2 (00:54→12:38)
[2016-12-21 04:38] LABS: BASOPHILS % (AUTO) 0.1 % (0.0-2.0); DIFF TOTAL % 100 %; EOSINOPHILS # (AUTO) 1.3 /CMM (0.0-0.7); EOSINOPHILS % (AUTO) 13.2 % (0.0-6.0); HEMATOCRIT 29 % (39-51); HEMOGLOBIN 9.3 g/dL (13.5-17.5); LYMPHOCYTES % (AUTO) 10.3 % (20.0-44.0); MEAN CORPUSCULAR HEMOGLOBIN 26 PG (26.0-33.0); MEAN CORPUSCULAR HGB CONC 32 g/dl (31.0-36.0); MEAN CORPUSCULAR VOLUME 82 fL (80-96); MONOCYTES # (AUTO) 0.5 /CMM (0.1-1.30); MONOCYTES % (AUTO) 5.1 % (2.0-12.0); NEUTROPHILS # (AUTO) 6.8 /CMM (1.8-8.9); NEUTROPHILS % (AUTO) 71.3 % (43.0-81.0); PLATELET COUNT (AUTO) 281 /CMM (150-450); RED BLOOD CELL COUNT(AUTO) 3.56 MIL/uL (4.5-6.0); WHITE BLOOD COUNT (AUTO) 9.6 K/uL (4.3-11.0)
[2016-12-21] MEDS: METRONIDAZOLE 500 MG TABLET PO SCH ×3 (04:53→20:25)
[2016-12-21 04:56] LABS: CALCIUM, SERUM 8.3 mg/dL (8.5-10.1); CREATININE 4.6 mg/dL (0.6-1.3); PHOSPHORUS 5.3 mg/dL (2.5-4.9); POTASSIUM 3.3 mmol/L (3.5-5.1)
[2016-12-21] MEDS: PANTOPRAZOLE 40 MG/PACK PACK GT SCH (06:05)
[2016-12-21] MEDS: AMLODIPINE BESYLATE 10 MG TABLET GT SCH (09:00)
[2016-12-21] MEDS: DOCUSATE SODIUM LIQ 100 MG/10 ML UDC GT SCH ×2 (09:00→17:41)
[2016-12-21] MEDS ORDERED: VANCOMYCIN 1 GM in IV D5W 250 ML IV SCH (09:00)
[2016-12-21 09:04] LABS: ABG BASE EXCESS -5.9 mmol/L; ABG HCO3 18.7 mmol/L; ABG PCO2 32.7 mmHg (35.0-45.0); ABG PH 7.374 (7.350-7.450); ABG PO2 96.4 mmHg (75.0-100.0); ABG TOTAL HEMOGLOBIN 7.5 G/dL (13.5-18.0); ALLEN TEST Pass; AaDO2 151.2 mmHg; O2Hb 93.9 % (94.0-97.0)
[2016-12-21] MEDS: ACIDOPHILUS/BULGARICUS 1 EACH TAB.CHEW GT SCH (09:54)
[2016-12-21] MEDS: LEVETIRACETAM SOL (5 ML) 100 MG/ML UDC GT SCH ×2 (09:54→20:25)
[2016-12-21] MEDS: LINEZOLID 600 MG TABLET PO SCH ×2 (09:54→20:25)
[2016-12-21] MEDS: VANCOMYCIN HCL 125 MG/2.5 ML ORAL.SUSP PO SCH ×4 (09:56→20:25)
[2016-12-21] MEDS ORDERED: FUROSEMIDE 20 MG/2 ML VIAL IV SCH (13:00)
[2016-12-21] MEDS ORDERED: LIDOCAINE 1%-EPI 1:100,000 20 ML VIAL IJ STA ×2 (16:34→17:04)
[2016-12-21] MEDS ORDERED: POTASSIUM CHLORIDE 20 MEQ POWDER PACKET GT SCH (17:00)
[2016-12-21] MEDS ORDERED: POTASSIUM CHLORIDE 20 MEQ POWDER PACKET GT ONE (17:00)
[2016-12-21] MEDS ORDERED: IV NS 0.9% 250 ML IV ONE (17:35)
[2016-12-21] MEDS: GLYTROL 1,000 ML BAG GT PRN (17:44)
[2016-12-21] MEDS: MICAFUNGIN SODIUM 100 MG in IV NS 0.9% 100 ML IV SCH (18:02)
[2016-12-21] MEDS: DAKINS QUARTER STRENGTH (0.125%) 480 ML BOTTLE TOP SCH (21:30)
[2016-12-22] VITALS (14 sets, daily range): BP systolic 102–138; BP diastolic 66–92
[2016-12-22] MEDS: BLOOD SUGAR DIAGNOSTIC 1 EACH STRIP IN SCH ×4 (00:23→17:27)
[2016-12-22] MEDS: INSULIN REGULAR, HUMAN 100 UNIT/ML 3 ML VIAL SQ PRN ×4 (00:41→17:28)
[2016-12-22] MEDS: LEVOFLOXACIN 500 MG /D5W 100ML 500 MG in PREMIX 1 EA IV SCH (04:17)
[2016-12-22] MEDS: METRONIDAZOLE 500 MG TABLET PO SCH ×3 (04:17→20:29)
[2016-12-22 04:19] LABS: BASOPHILS % (AUTO) 0.2 % (0.0-2.0); DIFF TOTAL % 100 %; EOSINOPHILS # (AUTO) 0.9 /CMM (0.0-0.7); EOSINOPHILS % (AUTO) 10.4 % (0.0-6.0); HEMATOCRIT 30 % (39-51); HEMOGLOBIN 9.6 g/dL (13.5-17.5); LYMPHOCYTES # (AUTO) 1.2 /CMM (0.8-4.8); LYMPHOCYTES % (AUTO) 13.9 % (20.0-44.0); MEAN CORPUSCULAR HEMOGLOBIN 26 PG (26.0-33.0); MEAN CORPUSCULAR HGB CONC 32 g/dl (31.0-36.0); MEAN CORPUSCULAR VOLUME 83 fL (80-96); MONOCYTES # (AUTO) 0.6 /CMM (0.1-1.30); MONOCYTES % (AUTO) 6.9 % (2.0-12.0); NEUTROPHILS % (AUTO) 68.6 % (43.0-81.0); PLATELET COUNT (AUTO) 314 /CMM (150-450); RED BLOOD CELL COUNT(AUTO) 3.63 MIL/uL (4.5-6.0); WHITE BLOOD COUNT (AUTO) 8.8 K/uL (4.3-11.0)
[2016-12-22 05:22] LABS: ALBUMIN 2.1 g/dL (3.4-5.0); BILIRUBIN,TOTAL 0.2 mg/dL (0.2-1.0); CALCIUM, SERUM 8.3 mg/dL (8.5-10.1); CREATININE 4.2 mg/dL (0.6-1.3); PHOSPHORUS 4.9 mg/dL (2.5-4.9); POTASSIUM 3.5 mmol/L (3.5-5.1); TOTAL PROTEIN, SERUM 6.9 g/dL (6.4-8.2)
[2016-12-22] MEDS: PANTOPRAZOLE 40 MG/PACK PACK GT SCH (06:06)
[2016-12-22] MEDS: DOCUSATE SODIUM LIQ 100 MG/10 ML UDC GT SCH ×2 (09:28→17:27)
[2016-12-22] MEDS: AMLODIPINE BESYLATE 10 MG TABLET GT SCH (09:28)
[2016-12-22] MEDS: ACIDOPHILUS/BULGARICUS 1 EACH TAB.CHEW GT SCH (09:28)
[2016-12-22] MEDS: LEVETIRACETAM SOL (5 ML) 100 MG/ML UDC GT SCH ×2 (09:28→20:29)
[2016-12-22] MEDS: LINEZOLID 600 MG TABLET PO SCH ×2 (09:28→20:29)
[2016-12-22] MEDS: VANCOMYCIN HCL 125 MG/2.5 ML ORAL.SUSP PO SCH ×4 (09:28→20:29)
[2016-12-22] MEDS: DAKINS QUARTER STRENGTH (0.125%) 480 ML BOTTLE TOP SCH (09:29)
[2016-12-22] MEDS ORDERED: IV NS 0.9% 250 ML IV ONE (15:15)
[2016-12-22] MEDS: MICAFUNGIN SODIUM 100 MG in IV NS 0.9% 100 ML IV SCH (18:49)
[2016-12-22] MEDS: HYDROCODONE/APAP 5/325MG 1 EACH TABLET GT PRN (20:30)
[2016-12-23] VITALS: BP_SYST 118; BP_SYST 132; BP_DIAS 80; BP_DIAS 82
[2016-12-23] MEDS: BLOOD SUGAR DIAGNOSTIC 1 EACH STRIP IN SCH ×4 (00:31→17:06)
[2016-12-23] MEDS: HYDROCODONE/APAP 5/325MG 1 EACH TABLET GT PRN ×3 (00:33→16:28)
[2016-12-23] MEDS: INSULIN REGULAR, HUMAN 100 UNIT/ML 3 ML VIAL SQ PRN ×3 (00:44→12:14)
[2016-12-23 04:00] VITALS: BP_SYST 125; BP_DIAS 75; BP_DIAS 76
[2016-12-23] MEDS: METRONIDAZOLE 500 MG TABLET PO SCH ×2 (04:37→12:11)
[2016-12-23] MEDS: PANTOPRAZOLE 40 MG/PACK PACK GT SCH (05:21)
[2016-12-23 07:56] LABS: CALCIUM, SERUM 9.2 mg/dL (8.5-10.1); CREATININE 3.7 mg/dL (0.6-1.3); POTASSIUM 4.1 mmol/L (3.5-5.1)
[2016-12-23 07:58] LABS: BASOPHILS % (AUTO) 0.4 % (0.0-2.0); DIFF TOTAL % 100 %; EOSINOPHILS # (AUTO) 0.8 /CMM (0.0-0.7); EOSINOPHILS % (AUTO) 8.7 % (0.0-6.0); HEMATOCRIT 38 % (39-51); HEMOGLOBIN 11.9 g/dL (13.5-17.5); LYMPHOCYTES # (AUTO) 1.8 /CMM (0.8-4.8); LYMPHOCYTES % (AUTO) 20.2 % (20.0-44.0); MEAN CORPUSCULAR HEMOGLOBIN 27 PG (26.0-33.0); MEAN CORPUSCULAR HGB CONC 32 g/dl (31.0-36.0); MEAN CORPUSCULAR VOLUME 83 fL (80-96); MONOCYTES # (AUTO) 0.7 /CMM (0.1-1.30); MONOCYTES % (AUTO) 8.1 % (2.0-12.0); NEUTROPHILS # (AUTO) 5.7 /CMM (1.8-8.9); NEUTROPHILS % (AUTO) 62.6 % (43.0-81.0); PLATELET COUNT (AUTO) 315 /CMM (150-450); RED BLOOD CELL COUNT(AUTO) 4.49 MIL/uL (4.5-6.0); WHITE BLOOD COUNT (AUTO) 9.1 K/uL (4.3-11.0)
[2016-12-23 08:00] VITALS: BP 117/66
[2016-12-23] MEDS: ACIDOPHILUS/BULGARICUS 1 EACH TAB.CHEW GT SCH (08:12)
[2016-12-23] MEDS: AMLODIPINE BESYLATE 10 MG TABLET GT SCH (08:12)
[2016-12-23] MEDS: LINEZOLID 600 MG TABLET PO SCH ×2 (08:12→20:43)
[2016-12-23] MEDS: LEVETIRACETAM SOL (5 ML) 100 MG/ML UDC GT SCH ×2 (08:12→20:43)
[2016-12-23] MEDS: DOCUSATE SODIUM LIQ 100 MG/10 ML UDC GT SCH ×2 (08:16→16:28)
[2016-12-23] MEDS: VANCOMYCIN HCL 125 MG/2.5 ML ORAL.SUSP PO SCH ×2 (08:16→12:12)
[2016-12-23] MEDS: DAKINS QUARTER STRENGTH (0.125%) 480 ML BOTTLE TOP SCH (08:17)
[2016-12-23 12:00] VITALS: BP 98/71
[2016-12-23] MEDS: GLYTROL 1,000 ML BAG GT PRN (13:41)
[2016-12-23 16:00] VITALS: BP 128/74
[2016-12-23] MEDS: MICAFUNGIN SODIUM 100 MG in IV NS 0.9% 100 ML IV SCH (18:00)
[2016-12-23 20:00] VITALS: BP 128/77
[2016-12-24] VITALS: BP 118/82
[2016-12-24] MEDS: INSULIN REGULAR, HUMAN 100 UNIT/ML 3 ML VIAL SQ PRN ×4 (00:27→18:44)
[2016-12-24] MEDS: BLOOD SUGAR DIAGNOSTIC 1 EACH STRIP IN SCH ×4 (00:27→18:41)
[2016-12-24 04:00] VITALS: BP 139/72
[2016-12-24] MEDS ORDERED: SECONDARY IV SET 1 EA INFUS.SET MC ONE (04:41)
[2016-12-24] MEDS: LEVOFLOXACIN 500 MG /D5W 100ML 500 MG in PREMIX 1 EA IV SCH (04:45)
[2016-12-24] MEDS: PANTOPRAZOLE 40 MG/PACK PACK GT SCH (05:09)
[2016-12-24 07:26] LABS: CREATININE 3.4 mg/dL (0.6-1.3); PHOSPHORUS 4.5 mg/dL (2.5-4.9); POTASSIUM 3.3 mmol/L (3.5-5.1)
[2016-12-24 08:00] VITALS: BP 109/76
[2016-12-24] MEDS: DOCUSATE SODIUM LIQ 100 MG/10 ML UDC GT SCH ×2 (09:31→18:36)
[2016-12-24] MEDS: LEVETIRACETAM SOL (5 ML) 100 MG/ML UDC GT SCH ×2 (09:31→21:36)
[2016-12-24] MEDS: ACIDOPHILUS/BULGARICUS 1 EACH TAB.CHEW GT SCH (09:33)
[2016-12-24] MEDS: AMLODIPINE BESYLATE 10 MG TABLET GT SCH (09:33)
[2016-12-24] MEDS: LINEZOLID 600 MG TABLET PO SCH ×2 (09:34→21:36)
[2016-12-24] MEDS: DAKINS QUARTER STRENGTH (0.125%) 480 ML BOTTLE TOP SCH (09:34)
[2016-12-24 12:00] VITALS: BP 104/59
[2016-12-24] MEDS ORDERED: POTASSIUM CHLORIDE 20 MEQ TAB.PRT.SR PO ONE (14:00)
[2016-12-24 15:06] LABS: ABG BASE EXCESS -1.7 mmol/L; ABG HCO3 23.3 mmol/L; ABG PCO2 40.4 mmHg (35.0-45.0); ABG PH 7.379 (7.350-7.450); ABG PO2 91.7 mmHg (75.0-100.0); ABG TOTAL HEMOGLOBIN 11.6 G/dL (13.5-18.0); ALLEN TEST Pass
[2016-12-24 16:00] VITALS: BP 119/68
[2016-12-24] MEDS: MICAFUNGIN SODIUM 100 MG in IV NS 0.9% 100 ML IV SCH (18:36)
[2016-12-24 20:00] VITALS: BP_SYST 116; BP_SYST 124; BP_DIAS 66; BP_DIAS 70
[2016-12-25] VITALS: BP 158/95
[2016-12-25] MEDS: INSULIN REGULAR, HUMAN 100 UNIT/ML 3 ML VIAL SQ PRN ×2 (00:02→11:55)
[2016-12-25] MEDS: BLOOD SUGAR DIAGNOSTIC 1 EACH STRIP IN SCH ×4 (00:03→17:35)
[2016-12-25] MEDS ORDERED: IV NS 0.9% 250 ML IV ONE (00:47)
[2016-12-25] MEDS ORDERED: IV SET PRIMARY PUMP SET 1 EA INFUS.SET MC ONE (00:47)
[2016-12-25 04:00] VITALS: BP_SYST 128; BP_DIAS 30; BP_DIAS 80
[2016-12-25] MEDS: PANTOPRAZOLE 40 MG/PACK PACK GT SCH (05:36)
[2016-12-25] MEDS: GLYTROL 1,000 ML BAG GT PRN (05:37)
[2016-12-25 07:32] LABS: BASOPHILS % (AUTO) 0.3 % (0.0-2.0); DIFF TOTAL % 100 %; EOSINOPHILS # (AUTO) 1.1 /CMM (0.0-0.7); EOSINOPHILS % (AUTO) 9.3 % (0.0-6.0); HEMATOCRIT 35 % (39-51); LYMPHOCYTES # (AUTO) 1.6 /CMM (0.8-4.8); LYMPHOCYTES % (AUTO) 12.6 % (20.0-44.0); MEAN CORPUSCULAR HEMOGLOBIN 27 PG (26.0-33.0); MEAN CORPUSCULAR HGB CONC 32 g/dl (31.0-36.0); MEAN CORPUSCULAR VOLUME 84 fL (80-96); MONOCYTES # (AUTO) 0.7 /CMM (0.1-1.30); MONOCYTES % (AUTO) 5.3 % (2.0-12.0); NEUTROPHILS % (AUTO) 72.5 % (43.0-81.0); PLATELET COUNT (AUTO) 345 /CMM (150-450); RED BLOOD CELL COUNT(AUTO) 4.14 MIL/uL (4.5-6.0); WHITE BLOOD COUNT (AUTO) 12.4 K/uL (4.3-11.0)
[2016-12-25 07:47] LABS: CREATININE 3.2 mg/dL (0.6-1.3); PHOSPHORUS 4.1 mg/dL (2.5-4.9)
[2016-12-25 08:00] VITALS: BP 126/77
[2016-12-25] MEDS: DOCUSATE SODIUM LIQ 100 MG/10 ML UDC GT SCH ×2 (08:11→17:34)
[2016-12-25] MEDS: LEVETIRACETAM SOL (5 ML) 100 MG/ML UDC GT SCH ×2 (08:11→21:10)
[2016-12-25] MEDS: ACIDOPHILUS/BULGARICUS 1 EACH TAB.CHEW GT SCH (08:11)
[2016-12-25] MEDS: LINEZOLID 600 MG TABLET PO SCH ×2 (08:11→21:10)
[2016-12-25] MEDS: DAKINS QUARTER STRENGTH (0.125%) 480 ML BOTTLE TOP SCH (08:12)
[2016-12-25] MEDS: AMLODIPINE BESYLATE 10 MG TABLET GT SCH (08:12)
[2016-12-25 12:00] VITALS: BP 133/75
[2016-12-25] MEDS: HYDROCODONE/APAP 5/325MG 1 EACH TABLET GT PRN (12:57)
[2016-12-25] MEDS: HYDROCORTISONE 2.5% CREAM 28.4 GM TUBE TP SCH ×2 (13:51→17:35)
[2016-12-25 16:00] VITALS: BP_SYST 114; BP_SYST 123; BP_DIAS 64; BP_DIAS 72
[2016-12-25] MEDS: MICAFUNGIN SODIUM 100 MG in IV NS 0.9% 100 ML IV SCH (18:01)
[2016-12-25 20:00] VITALS: BP 148/65
[2016-12-26] MEDS: BLOOD SUGAR DIAGNOSTIC 1 EACH STRIP IN SCH ×4 (00:40→17:36)
[2016-12-26] MEDS: INSULIN REGULAR, HUMAN 100 UNIT/ML 3 ML VIAL SQ PRN ×4 (00:42→17:39)
[2016-12-26 01:16] VITALS: BP_SYST 139; BP_SYST 179; BP_DIAS 64; BP_DIAS 83
[2016-12-26] MEDS: HYDROCODONE/APAP 5/325MG 1 EACH TABLET GT PRN ×2 (01:25→22:49)
[2016-12-26 04:00] VITALS: BP 142/68
[2016-12-26] MEDS: PANTOPRAZOLE 40 MG/PACK PACK GT SCH (05:43)
[2016-12-26] MEDS: LEVOFLOXACIN (500MG) 500 MG TABLET GT SCH (05:43)
[2016-12-26] MEDS: GLYTROL 1,000 ML BAG GT PRN (05:43)
[2016-12-26 07:59] LABS: BASOPHILS # (AUTO) 0.1 /CMM (0.0-0.2); BASOPHILS % (AUTO) 0.5 % (0.0-2.0); DIFF TOTAL % 100 %; EOSINOPHILS # (AUTO) 1.9 /CMM (0.0-0.7); EOSINOPHILS % (AUTO) 15.8 % (0.0-6.0); HEMATOCRIT 36 % (39-51); HEMOGLOBIN 11.3 g/dL (13.5-17.5); LYMPHOCYTES # (AUTO) 2.1 /CMM (0.8-4.8); LYMPHOCYTES % (AUTO) 17.5 % (20.0-44.0); MEAN CORPUSCULAR HEMOGLOBIN 26 PG (26.0-33.0); MEAN CORPUSCULAR HGB CONC 31 g/dl (31.0-36.0); MEAN CORPUSCULAR VOLUME 83 fL (80-96); MONOCYTES # (AUTO) 0.6 /CMM (0.1-1.30); MONOCYTES % (AUTO) 5.1 % (2.0-12.0); NEUTROPHILS # (AUTO) 7.3 /CMM (1.8-8.9); NEUTROPHILS % (AUTO) 61.1 % (43.0-81.0); PLATELET COUNT (AUTO) 343 /CMM (150-450); RED BLOOD CELL COUNT(AUTO) 4.32 MIL/uL (4.5-6.0); WHITE BLOOD COUNT (AUTO) 11.9 K/uL (4.3-11.0)
[2016-12-26 08:00] VITALS: BP 147/91
[2016-12-26 08:05] LABS: CALCIUM, SERUM 9.4 mg/dL (8.5-10.1); CREATININE 2.9 mg/dL (0.6-1.3); POTASSIUM 3.9 mmol/L (3.5-5.1)
[2016-12-26] MEDS: LEVETIRACETAM SOL (5 ML) 100 MG/ML UDC GT SCH ×2 (08:10→21:25)
[2016-12-26] MEDS: LINEZOLID 600 MG TABLET PO SCH ×2 (08:10→21:25)
[2016-12-26] MEDS: DOCUSATE SODIUM LIQ 100 MG/10 ML UDC GT SCH ×2 (08:10→17:34)
[2016-12-26] MEDS: ACIDOPHILUS/BULGARICUS 1 EACH TAB.CHEW GT SCH (08:10)
[2016-12-26] MEDS: AMLODIPINE BESYLATE 10 MG TABLET GT SCH (08:11)
[2016-12-26] MEDS: DAKINS QUARTER STRENGTH (0.125%) 480 ML BOTTLE TOP SCH (08:11)
[2016-12-26] MEDS: HYDROCORTISONE 2.5% CREAM 28.4 GM TUBE TP SCH ×2 (08:11→17:35)
[2016-12-26 12:00] VITALS: BP 144/89
[2016-12-26 16:00] VITALS: BP 132/81
[2016-12-26] MEDS: MICAFUNGIN SODIUM 100 MG in IV NS 0.9% 100 ML IV SCH (18:36)
[2016-12-26 20:00] VITALS: BP 129/76
[2016-12-26] MEDS ORDERED: IV SET PRIMARY PUMP SET 1 EA INFUS.SET MC ONE (21:30)
[2016-12-27] VITALS: BP 142/87
[2016-12-27] MEDS: BLOOD SUGAR DIAGNOSTIC 1 EACH STRIP IN SCH ×4 (00:23→17:35)
[2016-12-27] MEDS: INSULIN REGULAR, HUMAN 100 UNIT/ML 3 ML VIAL SQ PRN ×4 (00:24→17:35)
[2016-12-27 04:00] VITALS: BP 143/92
[2016-12-27] MEDS: PANTOPRAZOLE 40 MG/PACK PACK GT SCH (06:08)
[2016-12-27 08:00] VITALS: BP 141/89
[2016-12-27 08:09] LABS: BASOPHILS % (AUTO) 0.4 % (0.0-2.0); DIFF TOTAL % 100 %; EOSINOPHILS % (AUTO) 16.7 % (0.0-6.0); HEMATOCRIT 39 % (39-51); HEMOGLOBIN 12.2 g/dL (13.5-17.5); LYMPHOCYTES % (AUTO) 16.3 % (20.0-44.0); MEAN CORPUSCULAR HEMOGLOBIN 26 PG (26.0-33.0); MEAN CORPUSCULAR HGB CONC 31 g/dl (31.0-36.0); MEAN CORPUSCULAR VOLUME 83 fL (80-96); MONOCYTES # (AUTO) 0.6 /CMM (0.1-1.30); MONOCYTES % (AUTO) 5.2 % (2.0-12.0); NEUTROPHILS # (AUTO) 7.3 /CMM (1.8-8.9); NEUTROPHILS % (AUTO) 61.4 % (43.0-81.0); PLATELET COUNT (AUTO) 339 /CMM (150-450); RED BLOOD CELL COUNT(AUTO) 4.72 MIL/uL (4.5-6.0)
[2016-12-27] MEDS: DOCUSATE SODIUM LIQ 100 MG/10 ML UDC GT SCH ×2 (08:17→17:33)
[2016-12-27] MEDS: LEVETIRACETAM SOL (5 ML) 100 MG/ML UDC GT SCH ×2 (08:17→21:02)
[2016-12-27] MEDS: LINEZOLID 600 MG TABLET PO SCH ×2 (08:17→21:02)
[2016-12-27] MEDS: ACIDOPHILUS/BULGARICUS 1 EACH TAB.CHEW GT SCH (08:17)
[2016-12-27] MEDS: AMLODIPINE BESYLATE 10 MG TABLET GT SCH (08:18)
[2016-12-27] MEDS: DAKINS QUARTER STRENGTH (0.125%) 480 ML BOTTLE TOP SCH (08:19)
[2016-12-27] MEDS: HYDROCORTISONE 2.5% CREAM 28.4 GM TUBE TP SCH ×2 (08:19→17:36)
[2016-12-27 08:20] LABS: CALCIUM, SERUM 9.4 mg/dL (8.5-10.1); CREATININE 2.7 mg/dL (0.6-1.3); PHOSPHORUS 4.2 mg/dL (2.5-4.9); POTASSIUM 3.8 mmol/L (3.5-5.1)
[2016-12-27 10:26] LABS: ANISOCYTOSIS 2+; EOSINOPHILS % (MANUAL) 18 % (0-4); HYPOCHROMASIA 1+; LYMPHOCYTES % (MANUAL) 7 % (16-48); PLATELET ESTIMATE ADEQUATE
[2016-12-27 12:00] VITALS: BP 156/85
[2016-12-27 16:00] VITALS: BP 138/79
[2016-12-27 16:37] LABS: KETONES,URINE NEGATIVE (NEGATIVE); LEUKOCYTE ESTERASE ,URINE 2+ (NEGATIVE); PH,URINE 5.5 (5.0-8.0)
[2016-12-27 17:07] LABS: ADD UA MICROSCOPIC YES
[2016-12-27 17:22] LABS: ADD URINE CULTURE YES; WBC,URINE 51-80 /HPF (0-3)
[2016-12-27] MEDS: MICAFUNGIN SODIUM 100 MG in IV NS 0.9% 100 ML IV SCH (18:05)
[2016-12-27 20:00] VITALS: BP 147/87
[2016-12-28] VITALS: BP 154/90
[2016-12-28] MEDS: BLOOD SUGAR DIAGNOSTIC 1 EACH STRIP IN SCH ×3 (00:17→12:09)
[2016-12-28] MEDS: INSULIN REGULAR, HUMAN 100 UNIT/ML 3 ML VIAL SQ PRN ×3 (00:18→12:13)
[2016-12-28] MEDS: GLYTROL 1,000 ML BAG GT PRN (01:03)
[2016-12-28 04:00] VITALS: BP 122/77
[2016-12-28] MEDS ORDERED: IV NS 0.9% 250 ML IV ONE (04:11)
[2016-12-28] MEDS: PANTOPRAZOLE 40 MG/PACK PACK GT SCH (05:20)
[2016-12-28] MEDS: LEVOFLOXACIN (500MG) 500 MG TABLET GT SCH (05:20)
[2016-12-28 07:34] LABS: BASOPHILS % (AUTO) 0.2 % (0.0-2.0); DIFF TOTAL % 100 %; EOSINOPHILS # (AUTO) 1.7 /CMM (0.0-0.7); EOSINOPHILS % (AUTO) 13.5 % (0.0-6.0); HEMATOCRIT 36 % (39-51); HEMOGLOBIN 11.3 g/dL (13.5-17.5); LYMPHOCYTES # (AUTO) 1.8 /CMM (0.8-4.8); LYMPHOCYTES % (AUTO) 13.9 % (20.0-44.0); MEAN CORPUSCULAR HEMOGLOBIN 26 PG (26.0-33.0); MEAN CORPUSCULAR HGB CONC 32 g/dl (31.0-36.0); MEAN CORPUSCULAR VOLUME 83 fL (80-96); MONOCYTES # (AUTO) 0.7 /CMM (0.1-1.30); MONOCYTES % (AUTO) 5.2 % (2.0-12.0); NEUTROPHILS # (AUTO) 8.6 /CMM (1.8-8.9); NEUTROPHILS % (AUTO) 67.2 % (43.0-81.0); PLATELET COUNT (AUTO) 329 /CMM (150-450); RED BLOOD CELL COUNT(AUTO) 4.32 MIL/uL (4.5-6.0); WHITE BLOOD COUNT (AUTO) 12.8 K/uL (4.3-11.0)
[2016-12-28 07:55] LABS: CALCIUM, SERUM 9.3 mg/dL (8.5-10.1); CREATININE 2.7 mg/dL (0.6-1.3); PHOSPHORUS 3.8 mg/dL (2.5-4.9); POTASSIUM 3.9 mmol/L (3.5-5.1)
[2016-12-28 08:00] VITALS: BP 130/88
[2016-12-28] MEDS: ACIDOPHILUS/BULGARICUS 1 EACH TAB.CHEW GT SCH (08:16)
[2016-12-28] MEDS: DOCUSATE SODIUM LIQ 100 MG/10 ML UDC GT SCH (08:17)
[2016-12-28] MEDS: AMLODIPINE BESYLATE 10 MG TABLET GT SCH (08:17)
[2016-12-28] MEDS: HYDROCORTISONE 2.5% CREAM 28.4 GM TUBE TP SCH (08:17)
[2016-12-28] MEDS: DAKINS QUARTER STRENGTH (0.125%) 480 ML BOTTLE TOP SCH (08:17)
[2016-12-28] MEDS: LEVETIRACETAM SOL (5 ML) 100 MG/ML UDC GT SCH (08:17)
[2016-12-28] MEDS: LINEZOLID 600 MG TABLET PO SCH (08:17)
[2016-12-28 08:34] LABS: ALBUMIN 2.2 g/dL (3.4-5.0); BILIRUBIN,TOTAL 0.2 mg/dL (0.2-1.0); TOTAL PROTEIN, SERUM 7.6 g/dL (6.4-8.2)
[2016-12-28 12:00] VITALS: BP 143/88
[2016-12-28] MEDS ORDERED: LINE600T PO (12:06)
[2016-12-28] MEDS ORDERED: LEVO500T15 GT (12:06)
[2016-12-28] MEDS ORDERED: VORI50TA3 PO (12:09)
[2016-12-28] MEDS ORDERED: METR250T PO (12:09)
[2016-12-28 16:00] VITALS: BP 125/77
== END 2016-12-28 16:37 | DRG 853 ==
LOC: ER 22:47 → TELE1 12-18 03:02 → ICU 12-18 10:55 → TELE1 12-22 06:30 → ICU 12-22 06:30 → TELE1 12-22 06:35 → MEDSG1 12-28 12:09
PROVIDERS: ADMIT Contractor; ATTEND Contractor
PROC: 5A1955Z Respiratory Ventilation, Greater than 96 Consecutive Hours (ICD-10-PCS; principal; 2016-12-18)
PROC: 02HV33Z Insertion of Infusion Device into Superior Vena Cava, Percutaneous Approach (ICD-10-PCS; 2016-12-18)
PROC: B548ZZA Ultrasonography of Superior Vena Cava, Guidance (ICD-10-PCS; 2016-12-18)
PROC: 30233N1 Transfusion of Nonautologous Red Blood Cells into Peripheral Vein, Percutaneous Approach (ICD-10-PCS; 2016-12-20)
PROC: 0KBN0ZZ Excision of Right Hip Muscle, Open Approach (ICD-10-PCS; 2016-12-21)
DX: A41.9 Sepsis, unspecified organism (principal); E43 Unspecified severe protein-calorie malnutrition; J96.21 Acute and chronic respiratory failure with hypoxia; N17.0 Acute kidney failure with tubular necrosis; J69.0 Pneumonitis due to inhalation of food and vomit; L89.154 Pressure ulcer of sacral region, stage 4; G93.40 Encephalopathy, unspecified; R65.21 Severe sepsis with septic shock; E87.1 Hypo-osmolality and hyponatremia; Z99.11 Dependence on respirator [ventilator] status; N39.0 Urinary tract infection, site not specified; J90 Pleural effusion, not elsewhere classified; I50.22 Chronic systolic (congestive) heart failure; E87.2 Acidosis; B37.49 Other urogenital candidiasis; G93.1 Anoxic brain damage, not elsewhere classified; I13.0 Hypertensive heart and chronic kidney disease with heart failure and stage 1 through stage 4 chronic kidney disease, or unspecified chronic kidney disease; D47.3 Essential (hemorrhagic) thrombocythemia; E87.5 Hyperkalemia; K21.9 Gastro-esophageal reflux disease without esophagitis; Z87.11 Personal history of peptic ulcer disease; Z87.440 Personal history of urinary (tract) infections; Z93.0 Tracheostomy status; D63.8 Anemia in other chronic diseases classified elsewhere; F03.90 Unspecified dementia, unspecified severity, without behavioral disturbance, psychotic disturbance, mood disturbance, and anxiety; E88.09 Other disorders of plasma-protein metabolism, not elsewhere classified; R13.10 Dysphagia, unspecified; Z93.1 Gastrostomy status; L98.9 Disorder of the skin and subcutaneous tissue, unspecified; L89.310 Pressure ulcer of right buttock, unstageable; R31.9 Hematuria, unspecified; K76.0 Fatty (change of) liver, not elsewhere classified; B96.5 Pseudomonas (aeruginosa) (mallei) (pseudomallei) as the cause of diseases classified elsewhere; L25.9 Unspecified contact dermatitis, unspecified cause; Z86.14 Personal history of Methicillin resistant Staphylococcus aureus infection; K27.9 Peptic ulcer, site unspecified, unspecified as acute or chronic, without hemorrhage or perforation; G40.909 Epilepsy, unspecified, not intractable, without status epilepticus; E11.22 Type 2 diabetes mellitus with diabetic chronic kidney disease; N18.9 Chronic kidney disease, unspecified; I25.2 Old myocardial infarction; E11.649 Type 2 diabetes mellitus with hypoglycemia without coma
CPT/HCPCS: 31720; 36415; 36600; 71010-TC; 74000-TC; 80048-TC; 80053-TC; 80061-TC; 80076-TC; 80202-TC; 81000-TC; 82247-TC; 82248-TC; 82272-TC; 82550-TC; 82553-TC; 82962-TC; 83605-TC; 83735-TC; 84100-TC; 84443-TC; 85025-TC; 85610-TC; 85730-TC; 86850-TC; 86921-TC; 87040-TC; 87081-TC; 87086-TC; 87186-TC; 94002-TC; 94003-TC; 94640-TC; 94664-TC; 94760-TC; 94799-TC; 99082-TC; A4216; A4606; A4623; A4624; A6253; A6402; A6403; C1751; J1815; J1940; J1953; J1956; J2248; J2543; J3370; J3490; J7030; J7040; J7050; J7060; P9016-BL; P9047; Z7610